=== PATIENT | female | born 1965 | race Caucasian/White ===

== ENCOUNTER 2017-03-19 23:52 | Inpatient (IN) | payer OTHER ==
[2017-03-20] MEDS: HYDROmorphONE 1 MG/ML SYG IV ×4 (00:55→23:09)
[2017-03-20] MEDS: ONDANSETRON 4 MG INJ IV ×5 (00:55→23:09)
[2017-03-20 01:24] LABS: ADD MAN DIFF? NO; BASOPHIL # 0.1 10^3/ul (0.0-0.1); BASOPHILS % 0.9 % (0.0-2.0); EOSINOPHILS # 0.9 10^3/ul (0.0-0.5); EOSINOPHILS % 6.7 % (0.0-7.0); HEMOGLOBIN 11.6 g/dl (12.0-16.0); LYMPHOCYTES # 2.1 10^3/ul (0.8-2.9); LYMPHOCYTES % 15.9 % (15.0-51.0); MEAN CORPUSCULAR HEMOGLOBIN 27.8 pg (29.0-33.0); MEAN CORPUSCULAR HGB CONC 33.1 g/dl (32.0-37.0); MEAN CORPUSCULAR VOLUME 83.7 fl (82.0-101.0); MEAN PLATELET VOLUME 9.4 fl (7.4-10.4); MONOCYTE # 1.1 10^3/ul (0.3-0.9); MONOCYTES % 8.1 % (0.0-11.0); NEUTROPHILS % 67.3 % (39.0-77.0); PLATELET COUNT 566 10^3/UL (140-415); RED BLOOD COUNT 4.18 10^6/ul (4.20-5.40); RED CELL DISTRIBUTION WIDTH 18.6 % (11.5-14.5)
[2017-03-20 01:24] LABS: WHITE BLOOD COUNT 13.3 10^3/ul (4.8-10.8)
[2017-03-20 01:48] LABS: ALANINE AMINOTRANSFERASE 25 IU/L (13-69); ALBUMIN 3.9 g/dl (3.3-4.9); ALKALINE PHOSPHATASE 83 IU/L (42-121); ANION GAP 16 (8-16); ASPARTATE AMINO TRANSFERASE 17 IU/L (15-46); BILIRUBIN,INDIRECT 0.6 mg/dl (0-1.1); BILIRUBIN,TOTAL 0.6 mg/dl (0.2-1.3); BLOOD UREA NITROGEN 20 mg/dl (7-20); CALCIUM 10.9 mg/dl (8.4-10.2); CARBON DIOXIDE 30 mmol/L (21-31); CHLORIDE 92 mmol/L (97-110); CREATININE 0.94 mg/dl (0.44-1.00); GLUCOSE 110 mg/dl (70-220); LIPASE 506 U/L (23-300); POTASSIUM 4.2 mmol/L (3.5-5.1); SODIUM 134 mmol/L (135-144); TOTAL PROTEIN 7.8 g/dl (6.1-8.1)
[2017-03-20] MEDS ORDERED: METOCLOPRAMIDE 10 MG INJ (03:17)
[2017-03-20 03:24] LABS: URINE BLOOD (Dip) POC Negative (NEGATIVE); URINE GLUCOSE (Dip) POC Negative (NEGATIVE); URINE KETONES (Dip) POC Negative (NEGATIVE); URINE LEUKOCYTE EST (Dip) POC Negative (NEGATIVE); URINE NITRITE (Dip) POC Negative (NEGATIVE); URINE TOTAL PROTEIN POC Trace (NEGATIVE)
[2017-03-20 03:24] LABS: URINE PH (Dip) POC 5.5 (5.0-8.5)
[2017-03-20] MEDS: METOCLOPRAMIDE 10 MG INJ IV (03:27)
[2017-03-20] MEDS: SOD CHLORIDE 0.9% 1,000 ML IV ×4 (03:27→19:50)
[2017-03-20] MEDS: BARIUM SULF 2% 450 ML BTL (BERRY SMOOTHIE) PO ×2 (04:52→05:00)
[2017-03-20] MEDS ORDERED: BARIUM SULFATE 454 GM TUBE (E-Z PASTE) PO (05:00)
[2017-03-20] MEDS ORDERED: ACETAMINOPHEN 325 MG TAB PO (06:30)
[2017-03-20] MEDS: SPIRONOLACTONE 25 MG TAB PO (09:00)
[2017-03-20] MEDS: LISINOPRIL 20 MG TAB PO (09:00)
[2017-03-20] MEDS: LORATADINE 10 MG TAB PO (09:00)
[2017-03-20] MEDS: FUROSEMIDE 40 MG TAB PO (09:00)
[2017-03-20 11:26] LABS: ALANINE AMINOTRANSFERASE 28 IU/L (13-69); ALBUMIN 3.6 g/dl (3.3-4.9); ALBUMIN/GLOBULIN RATIO 1.09; ALKALINE PHOSPHATASE 78 IU/L (42-121); AMYLASE 72 U/L (11-123); ANION GAP 16 (8-16); ASPARTATE AMINO TRANSFERASE 17 IU/L (15-46); BILIRUBIN,INDIRECT 0.5 mg/dl (0-1.1); BILIRUBIN,TOTAL 0.5 mg/dl (0.2-1.3); BLOOD UREA NITROGEN 17 mg/dl (7-20); CALCIUM 9.7 mg/dl (8.4-10.2); CARBON DIOXIDE 26 mmol/L (21-31); CHLORIDE 95 mmol/L (97-110); CREATININE 0.79 mg/dl (0.44-1.00); GLUCOSE 102 mg/dl (70-220); LIPASE 305 U/L (23-300); POTASSIUM 4.2 mmol/L (3.5-5.1); SODIUM 133 mmol/L (135-144); TOTAL PROTEIN 6.9 g/dl (6.1-8.1)
[2017-03-20] MEDS ORDERED: NACL 0.9% 3 ML SYG IV (13:00)
[2017-03-20] MEDS ORDERED: MAGNESIUM HYDROXIDE 30ML CUP PO (13:00)
[2017-03-20] MEDS ORDERED: BISACODYL 10 MG SUPP PR (13:00)
[2017-03-20] MEDS: DIGOXIN 0.125 MG TAB PO (13:00)
[2017-03-20] MEDS: FAMOTIDINE 20 MG TAB PO (20:57)
[2017-03-21] MEDS: SOD CHLORIDE 0.9% 1,000 ML IV ×2 (01:50→16:25)
[2017-03-21] MEDS: PANTOPRAZOLE 40 MG INJ IV (05:11)
[2017-03-21 05:20] LABS: ADD MAN DIFF? NO
[2017-03-21 05:56] LABS: PHOSPHORUS 5.3 mg/dl (2.5-4.9)
[2017-03-21 05:56] LABS: MAGNESIUM 1.9 mg/dl (1.7-2.5)
[2017-03-21 06:39] LABS: ALANINE AMINOTRANSFERASE 26 IU/L (13-69); ALBUMIN 3.2 g/dl (3.3-4.9); ALBUMIN/GLOBULIN RATIO 1.03; ALKALINE PHOSPHATASE 69 IU/L (42-121); AMYLASE 58 U/L (11-123); ANION GAP 16 (8-16); ASPARTATE AMINO TRANSFERASE 18 IU/L (15-46); BILIRUBIN,INDIRECT 0.4 mg/dl (0-1.1); BILIRUBIN,TOTAL 0.4 mg/dl (0.2-1.3); BLOOD UREA NITROGEN 13 mg/dl (7-20); CALCIUM 9.3 mg/dl (8.4-10.2); CARBON DIOXIDE 24 mmol/L (21-31); CHLORIDE 101 mmol/L (97-110); CREATININE 0.73 mg/dl (0.44-1.00); GLUCOSE 83 mg/dl (70-220); LIPASE 194 U/L (23-300); POTASSIUM 4.1 mmol/L (3.5-5.1); SODIUM 137 mmol/L (135-144); TOTAL PROTEIN 6.3 g/dl (6.1-8.1)
[2017-03-21] MEDS: ONDANSETRON 4 MG INJ IV ×2 (07:46→23:46)
[2017-03-21] MEDS: HYDROmorphONE 1 MG/ML SYG IV (07:46)
[2017-03-21 07:47] LABS: WHITE BLOOD COUNT 10.3 10^3/ul (4.8-10.8)
[2017-03-21 07:47] LABS: BASOPHIL # 0.1 10^3/ul (0.0-0.1); EOSINOPHILS # 0.6 10^3/ul (0.0-0.5); HEMATOCRIT 30.9 % (37.0-47.0); HEMOGLOBIN 9.8 g/dl (12.0-16.0); LYMPHOCYTES # 1.4 10^3/ul (0.8-2.9); LYMPHOCYTES % 13.6 % (15.0-51.0); MEAN CORPUSCULAR HEMOGLOBIN 27.3 pg (29.0-33.0); MEAN CORPUSCULAR HGB CONC 31.7 g/dl (32.0-37.0); MEAN CORPUSCULAR VOLUME 86.1 fl (82.0-101.0); MEAN PLATELET VOLUME 9.8 fl (7.4-10.4); MONOCYTE # 0.7 10^3/ul (0.3-0.9); MONOCYTES % 6.9 % (0.0-11.0); NEUTROPHIL # 7.4 10^3/ul (1.6-7.5); NEUTROPHILS % 71.6 % (39.0-77.0); PLATELET COUNT 434 10^3/UL (140-415); RED BLOOD COUNT 3.59 10^6/ul (4.20-5.40); RED CELL DISTRIBUTION WIDTH 18.6 % (11.5-14.5)
[2017-03-21] MEDS: SPIRONOLACTONE 25 MG TAB PO (09:21)
[2017-03-21] MEDS: FAMOTIDINE 20 MG TAB PO ×2 (09:21→21:01)
[2017-03-21] MEDS: LORATADINE 10 MG TAB PO (09:21)
[2017-03-21] MEDS: LISINOPRIL 20 MG TAB PO (09:21)
[2017-03-21] MEDS: DIGOXIN 0.125 MG TAB PO (12:43)
[2017-03-21] MEDS: FUROSEMIDE 40 MG TAB PO (12:43)
[2017-03-21] MEDS ORDERED: HYDROmorphONE 4 MG TAB PO ×2 (14:45→15:00)
[2017-03-21] MEDS: traMADol-APAP 37.5-325 1 TAB PO (18:27)
[2017-03-22] MEDS: ONDANSETRON 4 MG INJ IV ×2 (03:48→09:25)
[2017-03-22 05:18] LABS: ADD MAN DIFF? NO
[2017-03-22 05:29] LABS: BASOPHIL # 0.1 10^3/ul (0.0-0.1); BASOPHILS % 0.9 % (0.0-2.0); EOSINOPHILS # 0.6 10^3/ul (0.0-0.5); EOSINOPHILS % 5.8 % (0.0-7.0); HEMATOCRIT 31.8 % (37.0-47.0); HEMOGLOBIN 10.4 g/dl (12.0-16.0); LYMPHOCYTES # 1.3 10^3/ul (0.8-2.9); LYMPHOCYTES % 13.2 % (15.0-51.0); MEAN CORPUSCULAR HEMOGLOBIN 27.7 pg (29.0-33.0); MEAN CORPUSCULAR HGB CONC 32.7 g/dl (32.0-37.0); MEAN CORPUSCULAR VOLUME 84.6 fl (82.0-101.0); MEAN PLATELET VOLUME 9.3 fl (7.4-10.4); MONOCYTE # 0.8 10^3/ul (0.3-0.9); MONOCYTES % 8.4 % (0.0-11.0); NEUTROPHIL # 6.8 10^3/ul (1.6-7.5); NEUTROPHILS % 70.9 % (39.0-77.0); PLATELET COUNT 413 10^3/UL (140-415); RED BLOOD COUNT 3.76 10^6/ul (4.20-5.40)
[2017-03-22 05:29] LABS: WHITE BLOOD COUNT 9.6 10^3/ul (4.8-10.8)
[2017-03-22] MEDS: PANTOPRAZOLE 40 MG INJ IV (05:58)
[2017-03-22 06:13] LABS: MAGNESIUM 1.8 mg/dl (1.7-2.5)
[2017-03-22 06:13] LABS: PHOSPHORUS 5.3 mg/dl (2.5-4.9)
[2017-03-22 06:16] LABS: ALANINE AMINOTRANSFERASE 27 IU/L (13-69); ALBUMIN 3.3 g/dl (3.3-4.9); ALBUMIN/GLOBULIN RATIO 0.97; ALKALINE PHOSPHATASE 67 IU/L (42-121); ANION GAP 14 (8-16); ASPARTATE AMINO TRANSFERASE 13 IU/L (15-46); BILIRUBIN,INDIRECT 0.6 mg/dl (0-1.1); BILIRUBIN,TOTAL 0.6 mg/dl (0.2-1.3); BLOOD UREA NITROGEN 10 mg/dl (7-20); CALCIUM 9.8 mg/dl (8.4-10.2); CARBON DIOXIDE 29 mmol/L (21-31); CHLORIDE 96 mmol/L (97-110); CREATININE 0.83 mg/dl (0.44-1.00); GLUCOSE 97 mg/dl (70-220); POTASSIUM 3.7 mmol/L (3.5-5.1); SODIUM 135 mmol/L (135-144); TOTAL PROTEIN 6.7 g/dl (6.1-8.1)
[2017-03-22] MEDS: LISINOPRIL 20 MG TAB PO (09:25)
[2017-03-22] MEDS: FAMOTIDINE 20 MG TAB PO ×2 (09:25→21:16)
[2017-03-22] MEDS: SPIRONOLACTONE 25 MG TAB PO (09:25)
[2017-03-22] MEDS: LORATADINE 10 MG TAB PO (09:25)
[2017-03-22] MEDS: SOD CHLORIDE 0.9% 1,000 ML IV (11:50)
[2017-03-22] MEDS: DIGOXIN 0.125 MG TAB PO (13:07)
[2017-03-22] MEDS: FUROSEMIDE 40 MG TAB PO (13:07)
[2017-03-22] MEDS: MINERAL OIL 30ML CUP PO (21:00)
[2017-03-22] MEDS: DOCUSATE SODIUM 100 MG CAP PO (21:16)
[2017-03-23] MEDS: SOD CHLORIDE 0.9% 1,000 ML IV ×2 (01:10→14:30)
[2017-03-23] MEDS: PANTOPRAZOLE 40 MG INJ IV (06:00)
[2017-03-23 06:03] LABS: ADD MAN DIFF? NO
[2017-03-23 06:06] LABS: BASOPHIL # 0.1 10^3/ul (0.0-0.1); BASOPHILS % 1.1 % (0.0-2.0); EOSINOPHILS # 0.4 10^3/ul (0.0-0.5); EOSINOPHILS % 5.2 % (0.0-7.0); HEMOGLOBIN 10.2 g/dl (12.0-16.0); LYMPHOCYTES # 1.5 10^3/ul (0.8-2.9); LYMPHOCYTES % 18.5 % (15.0-51.0); MEAN CORPUSCULAR HEMOGLOBIN 27.8 pg (29.0-33.0); MEAN CORPUSCULAR HGB CONC 32.9 g/dl (32.0-37.0); MEAN CORPUSCULAR VOLUME 84.5 fl (82.0-101.0); MONOCYTE # 0.7 10^3/ul (0.3-0.9); NEUTROPHIL # 5.5 10^3/ul (1.6-7.5); NEUTROPHILS % 66.6 % (39.0-77.0); PLATELET COUNT 376 10^3/UL (140-415); RED BLOOD COUNT 3.67 10^6/ul (4.20-5.40); RED CELL DISTRIBUTION WIDTH 18.2 % (11.5-14.5)
[2017-03-23 06:06] LABS: WHITE BLOOD COUNT 8.2 10^3/ul (4.8-10.8)
[2017-03-23 07:05] LABS: ALANINE AMINOTRANSFERASE 22 IU/L (13-69); ALBUMIN 3.3 g/dl (3.3-4.9); ALBUMIN/GLOBULIN RATIO 1.06; ALKALINE PHOSPHATASE 70 IU/L (42-121); ANION GAP 15 (8-16); ASPARTATE AMINO TRANSFERASE 14 IU/L (15-46); BILIRUBIN,INDIRECT 0.5 mg/dl (0-1.1); BILIRUBIN,TOTAL 0.5 mg/dl (0.2-1.3); BLOOD UREA NITROGEN 10 mg/dl (7-20); CALCIUM 9.8 mg/dl (8.4-10.2); CARBON DIOXIDE 26 mmol/L (21-31); CHLORIDE 99 mmol/L (97-110); CREATININE 0.75 mg/dl (0.44-1.00); GLUCOSE 106 mg/dl (70-220); POTASSIUM 3.8 mmol/L (3.5-5.1); SODIUM 136 mmol/L (135-144); TOTAL PROTEIN 6.4 g/dl (6.1-8.1)
[2017-03-23] MEDS: MINERAL OIL 30ML CUP PO ×2 (09:00→13:00)
[2017-03-23] MEDS: LORATADINE 10 MG TAB PO (10:51)
[2017-03-23] MEDS: LISINOPRIL 20 MG TAB PO (10:53)
[2017-03-23] MEDS: FAMOTIDINE 20 MG TAB PO ×2 (10:53→20:49)
[2017-03-23] MEDS: FUROSEMIDE 40 MG TAB PO (10:53)
[2017-03-23] MEDS: SPIRONOLACTONE 25 MG TAB PO (10:53)
[2017-03-23] MEDS: DIGOXIN 0.125 MG TAB PO (13:17)
[2017-03-23] MEDS: ONDANSETRON 4 MG INJ IV (14:11)
[2017-03-23] MEDS: ONDANSETRON 4 MG TAB PO (14:41)
[2017-03-23] MEDS ORDERED: BISACODYL (EC) 5 MG TAB PO (16:30)
[2017-03-23] MEDS: MAGNESIUM HYDROXIDE 30ML CUP PO ×2 (16:50→20:50)
[2017-03-23] MEDS: DIPHENHYDRAMINE 25 MG CAP PO (20:54)
[2017-03-24] MEDS: PANTOPRAZOLE 40 MG INJ IV (05:47)
[2017-03-24] MEDS: HYDROmorphONE 2 MG TAB PO ×2 (08:23→18:52)
[2017-03-24] MEDS: ONDANSETRON 4 MG TAB PO ×3 (08:23→20:43)
[2017-03-24] MEDS: FUROSEMIDE 40 MG TAB PO (09:00)
[2017-03-24] MEDS: SPIRONOLACTONE 25 MG TAB PO (09:00)
[2017-03-24] MEDS: MAGNESIUM HYDROXIDE 30ML CUP PO ×2 (09:00→20:46)
[2017-03-24] MEDS: LORATADINE 10 MG TAB PO (09:00)
[2017-03-24] MEDS: LISINOPRIL 20 MG TAB PO (09:00)
[2017-03-24] MEDS: FAMOTIDINE 20 MG TAB PO ×2 (12:57→20:43)
[2017-03-24] MEDS: DIGOXIN 0.125 MG TAB PO (12:57)
[2017-03-24] MEDS: DIPHENHYDRAMINE 25 MG CAP PO ×2 (12:57→20:45)
[2017-03-24 17:28] LABS: INR 0.93; PARTIAL THROMBOPLASTIN TIME 29.4 Sec (25.0-35.0); PROTIME 12.6 Sec (11.9-14.9)
[2017-03-25] MEDS: ONDANSETRON 4 MG TAB PO ×2 (03:36→09:30)
[2017-03-25] MEDS: HYDROmorphONE 2 MG TAB PO ×3 (03:37→20:05)
[2017-03-25] MEDS: PANTOPRAZOLE 40 MG INJ IV (05:20)
[2017-03-25 05:31] LABS: ADD MAN DIFF? NO
[2017-03-25 05:44] LABS: WHITE BLOOD COUNT 9.5 10^3/ul (4.8-10.8)
[2017-03-25 05:44] LABS: BASOPHIL # 0.1 10^3/ul (0.0-0.1); BASOPHILS % 0.7 % (0.0-2.0); EOSINOPHILS # 0.6 10^3/ul (0.0-0.5); EOSINOPHILS % 6.2 % (0.0-7.0); HEMATOCRIT 30.7 % (37.0-47.0); HEMOGLOBIN 10.1 g/dl (12.0-16.0); LYMPHOCYTES # 1.7 10^3/ul (0.8-2.9); LYMPHOCYTES % 17.9 % (15.0-51.0); MEAN CORPUSCULAR HEMOGLOBIN 28.5 pg (29.0-33.0); MEAN CORPUSCULAR HGB CONC 32.9 g/dl (32.0-37.0); MEAN CORPUSCULAR VOLUME 86.5 fl (82.0-101.0); MEAN PLATELET VOLUME 10.1 fl (7.4-10.4); MONOCYTE # 0.8 10^3/ul (0.3-0.9); NEUTROPHIL # 6.3 10^3/ul (1.6-7.5); NEUTROPHILS % 66.7 % (39.0-77.0); PLATELET COUNT 327 10^3/UL (140-415); RED BLOOD COUNT 3.55 10^6/ul (4.20-5.40); RED CELL DISTRIBUTION WIDTH 17.9 % (11.5-14.5)
[2017-03-25 06:09] LABS: ANION GAP 14 (8-16); BLOOD UREA NITROGEN 14 mg/dl (7-20); CALCIUM 9.8 mg/dl (8.4-10.2); CARBON DIOXIDE 30 mmol/L (21-31); CHLORIDE 97 mmol/L (97-110); CREATININE 0.77 mg/dl (0.44-1.00); GLUCOSE 99 mg/dl (70-220); POTASSIUM 4.1 mmol/L (3.5-5.1); SODIUM 137 mmol/L (135-144)
[2017-03-25 06:10] LABS: MAGNESIUM 1.9 mg/dl (1.7-2.5)
[2017-03-25 06:10] LABS: PHOSPHORUS 5.5 mg/dl (2.5-4.9)
[2017-03-25] MEDS: FUROSEMIDE 40 MG TAB PO (09:00)
[2017-03-25] MEDS: MAGNESIUM HYDROXIDE 30ML CUP PO ×2 (09:00→21:29)
[2017-03-25] MEDS: SPIRONOLACTONE 25 MG TAB PO (09:00)
[2017-03-25] MEDS: LORATADINE 10 MG TAB PO (09:31)
[2017-03-25] MEDS: LISINOPRIL 20 MG TAB PO (09:31)
[2017-03-25] MEDS: FAMOTIDINE 20 MG TAB PO ×2 (09:31→21:29)
[2017-03-25] MEDS: DIGOXIN 0.125 MG TAB PO (12:39)
[2017-03-25] MEDS: LIDOCAINE 1% (MDV) 20 ML INJ (13:44)
[2017-03-25] MEDS: ONDANSETRON 4 MG INJ (14:24)
[2017-03-25] MEDS: MIDAZOLAM 1 MG/ML 2 ML INJ (14:24)
[2017-03-25] MEDS: FENTAnyl 50 MCG/ML VIAL (14:24)
[2017-03-25] MEDS ORDERED: hydrALAzine 20 MG INJ IV (15:30)
[2017-03-25] MEDS ORDERED: HYDROmorphONE (0.2 MG/ML) 10ML SYG IV ×2 (15:30)
[2017-03-25] MEDS ORDERED: EPHEDrine SULFATE 50 MG/5 ML SYG IV (15:30)
[2017-03-25] MEDS ORDERED: ONDANSETRON 4 MG INJ IV (15:30)
[2017-03-25] MEDS ORDERED: PROCHLORPERAZINE 10 MG INJ IV (15:30)
[2017-03-25] MEDS: HYDROmorphONE (0.2 MG/ML) 10ML SYG IV ×2 (15:50→16:04)
[2017-03-25] MEDS: METOCLOPRAMIDE 10 MG INJ IV (15:51)
[2017-03-25] MEDS ORDERED: VANCOMYCIN IV PER PHARMACY XX (16:30)
[2017-03-25] MEDS ORDERED: CEFTRIAXONE 1 GM/50 ML (PMX) 50 ML IVPB (16:30)
[2017-03-25] MEDS: DIPHENHYDRAMINE 25 MG CAP PO (17:52)
[2017-03-25] MEDS: ERTAPENEM SODIUM 1 GM in SOD CHLORIDE 0.9% 100 ML IVPB (17:53)
[2017-03-25] MEDS: VANCOMYCIN 1.5 GM in DEXTROSE 5% 500 ML IVPB (18:43)
[2017-03-25] MEDS: morphine 4 MG/ML VIAL IV (18:43)
[2017-03-26] MEDS: ONDANSETRON 4 MG TAB PO ×3 (01:31→20:20)
[2017-03-26] MEDS: HYDROmorphONE 2 MG TAB PO ×2 (04:56→20:43)
[2017-03-26 05:22] LABS: ADD MAN DIFF? NO
[2017-03-26 05:30] LABS: BASOPHIL # 0.1 10^3/ul (0.0-0.1); BASOPHILS % 0.4 % (0.0-2.0); EOSINOPHILS # 0.3 10^3/ul (0.0-0.5); EOSINOPHILS % 2.4 % (0.0-7.0); HEMATOCRIT 31.1 % (37.0-47.0); HEMOGLOBIN 10.1 g/dl (12.0-16.0); LYMPHOCYTES # 0.7 10^3/ul (0.8-2.9); LYMPHOCYTES % 5.2 % (15.0-51.0); MEAN CORPUSCULAR HEMOGLOBIN 27.9 pg (29.0-33.0); MEAN CORPUSCULAR HGB CONC 32.5 g/dl (32.0-37.0); MEAN CORPUSCULAR VOLUME 85.9 fl (82.0-101.0); MEAN PLATELET VOLUME 9.7 fl (7.4-10.4); MONOCYTE # 0.7 10^3/ul (0.3-0.9); MONOCYTES % 4.9 % (0.0-11.0); NEUTROPHIL # 12.1 10^3/ul (1.6-7.5); NEUTROPHILS % 86.5 % (39.0-77.0); PLATELET COUNT 338 10^3/UL (140-415); RED BLOOD COUNT 3.62 10^6/ul (4.20-5.40); RED CELL DISTRIBUTION WIDTH 17.5 % (11.5-14.5)
[2017-03-26] MEDS: PANTOPRAZOLE 40 MG INJ IV (05:34)
[2017-03-26] MEDS: VANCOMYCIN 1 GM in NS 250 ML IVPB ×2 (05:34→18:02)
[2017-03-26] MEDS ORDERED: VANCOMYCIN 1.25 GM in DEXTROSE 5% 250 ML IVPB (06:00)
[2017-03-26 06:18] LABS: PHOSPHORUS 5.5 mg/dl (2.5-4.9)
[2017-03-26 06:29] LABS: ALANINE AMINOTRANSFERASE 28 IU/L (13-69); ALBUMIN 3.3 g/dl (3.3-4.9); ALBUMIN/GLOBULIN RATIO 1.03; ALKALINE PHOSPHATASE 72 IU/L (42-121); ANION GAP 13 (8-16); ASPARTATE AMINO TRANSFERASE 21 IU/L (15-46); BILIRUBIN,INDIRECT 0.5 mg/dl (0-1.1); BILIRUBIN,TOTAL 0.5 mg/dl (0.2-1.3); BLOOD UREA NITROGEN 14 mg/dl (7-20); CALCIUM 9.6 mg/dl (8.4-10.2); CARBON DIOXIDE 30 mmol/L (21-31); CHLORIDE 97 mmol/L (97-110); CREATININE 0.82 mg/dl (0.44-1.00); GLUCOSE 126 mg/dl (70-220); POTASSIUM 4.5 mmol/L (3.5-5.1); SODIUM 135 mmol/L (135-144); TOTAL PROTEIN 6.5 g/dl (6.1-8.1)
[2017-03-26] MEDS: LORATADINE 10 MG TAB PO (08:27)
[2017-03-26] MEDS: FAMOTIDINE 20 MG TAB PO ×2 (08:27→20:20)
[2017-03-26] MEDS: LISINOPRIL 20 MG TAB PO (08:27)
[2017-03-26] MEDS: MAGNESIUM HYDROXIDE 30ML CUP PO ×2 (08:28→20:20)
[2017-03-26] MEDS: SPIRONOLACTONE 25 MG TAB PO (08:28)
[2017-03-26] MEDS: FUROSEMIDE 40 MG TAB PO (08:28)
[2017-03-26] MEDS: DIGOXIN 0.125 MG TAB PO (13:04)
[2017-03-26] MEDS: METOCLOPRAMIDE 10 MG INJ IV (13:15)
[2017-03-26] MEDS: ERTAPENEM SODIUM 1 GM in SOD CHLORIDE 0.9% 100 ML IVPB (16:02)
[2017-03-27] MEDS: DIPHENHYDRAMINE 25 MG CAP PO (02:10)
[2017-03-27] MEDS: ONDANSETRON 4 MG TAB PO ×3 (02:10→20:09)
[2017-03-27] MEDS: HYDROmorphONE 2 MG TAB PO ×3 (02:35→20:45)
[2017-03-27 05:13] LABS: ADD MAN DIFF? NO
[2017-03-27 05:15] LABS: WHITE BLOOD COUNT 9.2 10^3/ul (4.8-10.8)
[2017-03-27 05:15] LABS: BASOPHILS % 0.3 % (0.0-2.0); EOSINOPHILS # 0.9 10^3/ul (0.0-0.5); EOSINOPHILS % 9.3 % (0.0-7.0); HEMOGLOBIN 9.3 g/dl (12.0-16.0); LYMPHOCYTES # 0.9 10^3/ul (0.8-2.9); LYMPHOCYTES % 9.6 % (15.0-51.0); MEAN CORPUSCULAR HEMOGLOBIN 28.5 pg (29.0-33.0); MEAN CORPUSCULAR HGB CONC 33.2 g/dl (32.0-37.0); MEAN CORPUSCULAR VOLUME 85.9 fl (82.0-101.0); MONOCYTE # 0.7 10^3/ul (0.3-0.9); MONOCYTES % 7.6 % (0.0-11.0); NEUTROPHIL # 6.7 10^3/ul (1.6-7.5); NEUTROPHILS % 72.7 % (39.0-77.0); PLATELET COUNT 263 10^3/UL (140-415); RED BLOOD COUNT 3.26 10^6/ul (4.20-5.40); RED CELL DISTRIBUTION WIDTH 17.5 % (11.5-14.5)
[2017-03-27 05:34] LABS: ANION GAP 11 (8-16); BLOOD UREA NITROGEN 13 mg/dl (7-20); CALCIUM 9.2 mg/dl (8.4-10.2); CARBON DIOXIDE 32 mmol/L (21-31); CHLORIDE 95 mmol/L (97-110); CREATININE 0.79 mg/dl (0.44-1.00); GLUCOSE 103 mg/dl (70-220); SODIUM 134 mmol/L (135-144)
[2017-03-27 05:36] LABS: VANCOMYCIN,TROUGH 19.5 ug/ml (10.0-20.0)
[2017-03-27] MEDS: PANTOPRAZOLE 40 MG INJ IV (06:41)
[2017-03-27] MEDS: MAGNESIUM HYDROXIDE 30ML CUP PO ×2 (09:00→20:45)
[2017-03-27] MEDS: LISINOPRIL 20 MG TAB PO (09:00)
[2017-03-27] MEDS: FAMOTIDINE 20 MG TAB PO ×2 (10:17→20:45)
[2017-03-27] MEDS: LORATADINE 10 MG TAB PO (10:21)
[2017-03-27] MEDS: VANCOMYCIN 750 MG in DEXTROSE 5% 150 ML IVPB (11:58)
[2017-03-27] MEDS: DIGOXIN 0.125 MG TAB PO (14:33)
[2017-03-27] MEDS: ERTAPENEM SODIUM 1 GM in SOD CHLORIDE 0.9% 100 ML IVPB (16:34)
[2017-03-27] MEDS: LIDOCAINE 1% (MPF) 5 ML VIAL SC (17:05)
[2017-03-27] MEDS: SOD CHLORIDE 0.9% 100 ML (17:34)
[2017-03-27] MEDS: VANCOMYCIN 500MG/NS (PMX) 100 ML IVPB (22:09)
[2017-03-28] MEDS: ONDANSETRON 4 MG INJ IV ×2 (02:22→15:25)
[2017-03-28] MEDS: HYDROmorphONE 2 MG TAB PO ×2 (03:00→15:26)
[2017-03-28 05:43] LABS: ADD MAN DIFF? NO
[2017-03-28 05:52] LABS: WHITE BLOOD COUNT 9.9 10^3/ul (4.8-10.8)
[2017-03-28 05:52] LABS: BASOPHILS % 0.3 % (0.0-2.0); EOSINOPHILS # 0.8 10^3/ul (0.0-0.5); EOSINOPHILS % 8.1 % (0.0-7.0); HEMATOCRIT 28.2 % (37.0-47.0); HEMOGLOBIN 9.2 g/dl (12.0-16.0); LYMPHOCYTES # 1.1 10^3/ul (0.8-2.9); LYMPHOCYTES % 11.3 % (15.0-51.0); MEAN CORPUSCULAR HEMOGLOBIN 28.7 pg (29.0-33.0); MEAN CORPUSCULAR HGB CONC 32.6 g/dl (32.0-37.0); MEAN CORPUSCULAR VOLUME 87.9 fl (82.0-101.0); MEAN PLATELET VOLUME 10.4 fl (7.4-10.4); MONOCYTE # 0.9 10^3/ul (0.3-0.9); MONOCYTES % 8.6 % (0.0-11.0); NEUTROPHIL # 7.1 10^3/ul (1.6-7.5); NEUTROPHILS % 71.4 % (39.0-77.0); PLATELET COUNT 281 10^3/UL (140-415); RED BLOOD COUNT 3.21 10^6/ul (4.20-5.40); RED CELL DISTRIBUTION WIDTH 16.7 % (11.5-14.5)
[2017-03-28 06:20] LABS: PHOSPHORUS 4.6 mg/dl (2.5-4.9)
[2017-03-28] MEDS: PANTOPRAZOLE 40 MG INJ IV (06:35)
[2017-03-28 06:58] LABS: ALANINE AMINOTRANSFERASE 31 IU/L (13-69); ALBUMIN 2.9 g/dl (3.3-4.9); ALKALINE PHOSPHATASE 70 IU/L (42-121); ANION GAP 11 (8-16); ASPARTATE AMINO TRANSFERASE 13 IU/L (15-46); BILIRUBIN,INDIRECT 0.5 mg/dl (0-1.1); BILIRUBIN,TOTAL 0.5 mg/dl (0.2-1.3); BLOOD UREA NITROGEN 11 mg/dl (7-20); CALCIUM 9.3 mg/dl (8.4-10.2); CARBON DIOXIDE 32 mmol/L (21-31); CHLORIDE 95 mmol/L (97-110); CREATININE 0.76 mg/dl (0.44-1.00); GLUCOSE 98 mg/dl (70-220); SODIUM 134 mmol/L (135-144); TOTAL PROTEIN 6.1 g/dl (6.1-8.1)
[2017-03-28] MEDS: LORATADINE 10 MG TAB PO (08:55)
[2017-03-28] MEDS: FAMOTIDINE 20 MG TAB PO ×2 (08:55→21:55)
[2017-03-28] MEDS: FUROSEMIDE 40 MG TAB PO (08:55)
[2017-03-28] MEDS: LISINOPRIL 20 MG TAB PO (08:56)
[2017-03-28] MEDS: VANCOMYCIN 500MG/NS (PMX) 100 ML IVPB ×2 (08:56→21:56)
[2017-03-28] MEDS: MAGNESIUM HYDROXIDE 30ML CUP PO ×2 (08:56→21:55)
[2017-03-28] MEDS: DIPHENHYDRAMINE 25 MG CAP PO (09:12)
[2017-03-28] MEDS: DIGOXIN 0.125 MG TAB PO (12:10)
[2017-03-28] MEDS: ERTAPENEM SODIUM 1 GM in SOD CHLORIDE 0.9% 100 ML IVPB (16:21)
[2017-03-29] MEDS: PANTOPRAZOLE 40 MG INJ IV (04:41)
[2017-03-29 05:31] LABS: ADD MAN DIFF? NO
[2017-03-29 05:39] LABS: WHITE BLOOD COUNT 9.1 10^3/ul (4.8-10.8)
[2017-03-29 05:39] LABS: BASOPHILS % 0.3 % (0.0-2.0); EOSINOPHILS # 0.6 10^3/ul (0.0-0.5); HEMOGLOBIN 9.3 g/dl (12.0-16.0); LYMPHOCYTES # 1.2 10^3/ul (0.8-2.9); LYMPHOCYTES % 12.6 % (15.0-51.0); MEAN CORPUSCULAR HEMOGLOBIN 28.4 pg (29.0-33.0); MEAN CORPUSCULAR HGB CONC 33.2 g/dl (32.0-37.0); MEAN CORPUSCULAR VOLUME 85.6 fl (82.0-101.0); MEAN PLATELET VOLUME 10.5 fl (7.4-10.4); MONOCYTE # 0.7 10^3/ul (0.3-0.9); NEUTROPHIL # 6.6 10^3/ul (1.6-7.5); NEUTROPHILS % 72.7 % (39.0-77.0); PLATELET COUNT 275 10^3/UL (140-415); RED BLOOD COUNT 3.27 10^6/ul (4.20-5.40); RED CELL DISTRIBUTION WIDTH 16.6 % (11.5-14.5)
[2017-03-29 06:04] LABS: ALANINE AMINOTRANSFERASE 25 IU/L (13-69); ALBUMIN 2.9 g/dl (3.3-4.9); ALBUMIN/GLOBULIN RATIO 0.85; ALKALINE PHOSPHATASE 74 IU/L (42-121); ANION GAP 13 (8-16); ASPARTATE AMINO TRANSFERASE 11 IU/L (15-46); BILIRUBIN,INDIRECT 0.6 mg/dl (0-1.1); BILIRUBIN,TOTAL 0.6 mg/dl (0.2-1.3); BLOOD UREA NITROGEN 9 mg/dl (7-20); CALCIUM 9.3 mg/dl (8.4-10.2); CARBON DIOXIDE 32 mmol/L (21-31); CHLORIDE 95 mmol/L (97-110); CREATININE 0.82 mg/dl (0.44-1.00); GLUCOSE 93 mg/dl (70-220); POTASSIUM 3.9 mmol/L (3.5-5.1); SODIUM 136 mmol/L (135-144); TOTAL PROTEIN 6.3 g/dl (6.1-8.1)
[2017-03-29 06:10] LABS: PHOSPHORUS 4.9 mg/dl (2.5-4.9)
[2017-03-29] MEDS: IOHEXOL 14.3 MG(I)/ML (ADULT) BTL PO (08:00)
[2017-03-29] MEDS: SOD CHLORIDE 0.9% 100 ML (09:57)
[2017-03-29] MEDS: IOHEXOL 300MG/ML 150 ML BTL (09:57)
[2017-03-29 10:41] LABS: VANCOMYCIN,TROUGH 11.1 ug/ml (10.0-20.0)
[2017-03-29] MEDS: MAGNESIUM HYDROXIDE 30ML CUP PO ×2 (11:49→21:00)
[2017-03-29] MEDS: VANCOMYCIN 500MG/NS (PMX) 100 ML IVPB ×2 (11:49→21:05)
[2017-03-29] MEDS: FAMOTIDINE 20 MG TAB PO ×2 (11:50→21:04)
[2017-03-29] MEDS: LORATADINE 10 MG TAB PO (11:50)
[2017-03-29] MEDS: LISINOPRIL 20 MG TAB PO (11:52)
[2017-03-29] MEDS: FUROSEMIDE 40 MG TAB PO (11:52)
[2017-03-29] MEDS: DIGOXIN 0.125 MG TAB PO (13:16)
[2017-03-29] MEDS: ONDANSETRON 4 MG TAB PO ×2 (13:26→22:37)
[2017-03-29] MEDS: HYDROmorphONE 2 MG TAB PO ×2 (13:27→22:37)
[2017-03-29] MEDS: ERTAPENEM SODIUM 1 GM in SOD CHLORIDE 0.9% 100 ML IVPB (16:31)
[2017-03-29] MEDS: DIPHENHYDRAMINE 25 MG CAP PO (23:43)
[2017-03-30 05:24] LABS: ADD MAN DIFF? NO
[2017-03-30 05:30] LABS: WHITE BLOOD COUNT 7.9 10^3/ul (4.8-10.8)
[2017-03-30 05:30] LABS: BASOPHILS % 0.4 % (0.0-2.0); EOSINOPHILS # 0.7 10^3/ul (0.0-0.5); EOSINOPHILS % 8.3 % (0.0-7.0); HEMATOCRIT 25.5 % (37.0-47.0); HEMOGLOBIN 8.4 g/dl (12.0-16.0); LYMPHOCYTES # 1.2 10^3/ul (0.8-2.9); LYMPHOCYTES % 15.5 % (15.0-51.0); MEAN CORPUSCULAR HEMOGLOBIN 28.2 pg (29.0-33.0); MEAN CORPUSCULAR HGB CONC 32.9 g/dl (32.0-37.0); MEAN CORPUSCULAR VOLUME 85.6 fl (82.0-101.0); MEAN PLATELET VOLUME 10.4 fl (7.4-10.4); MONOCYTE # 0.8 10^3/ul (0.3-0.9); MONOCYTES % 9.6 % (0.0-11.0); NEUTROPHIL # 5.2 10^3/ul (1.6-7.5); NEUTROPHILS % 65.8 % (39.0-77.0); PLATELET COUNT 256 10^3/UL (140-415); RED BLOOD COUNT 2.98 10^6/ul (4.20-5.40); RED CELL DISTRIBUTION WIDTH 16.5 % (11.5-14.5)
[2017-03-30 05:56] LABS: PHOSPHORUS 5.1 mg/dl (2.5-4.9)
[2017-03-30 05:56] LABS: MAGNESIUM 1.9 mg/dl (1.7-2.5)
[2017-03-30 06:03] LABS: ANION GAP 10 (8-16); BLOOD UREA NITROGEN 8 mg/dl (7-20); CALCIUM 9.2 mg/dl (8.4-10.2); CARBON DIOXIDE 33 mmol/L (21-31); CHLORIDE 95 mmol/L (97-110); CREATININE 0.74 mg/dl (0.44-1.00); GLUCOSE 83 mg/dl (70-220); POTASSIUM 3.3 mmol/L (3.5-5.1); SODIUM 135 mmol/L (135-144)
[2017-03-30] MEDS: PANTOPRAZOLE 40 MG INJ IV (06:04)
[2017-03-30 06:21] LABS: INR 1.08; PROTIME 14.1 Sec (11.9-14.9); PT RATIO 1.1
[2017-03-30 06:22] LABS: PARTIAL THROMBOPLASTIN TIME 33.5 Sec (25.0-35.0)
[2017-03-30] MEDS: FAMOTIDINE 20 MG TAB PO ×2 (09:00→21:16)
[2017-03-30] MEDS: MAGNESIUM HYDROXIDE 30ML CUP PO ×2 (09:00→21:16)
[2017-03-30] MEDS: LISINOPRIL 20 MG TAB PO (09:00)
[2017-03-30] MEDS: LORATADINE 10 MG TAB PO (09:00)
[2017-03-30] MEDS: VANCOMYCIN 500MG/NS (PMX) 100 ML IVPB ×2 (10:00→14:40)
[2017-03-30] MEDS ORDERED: MEPERIDINE 25 MG INJ IV (11:00)
[2017-03-30] MEDS ORDERED: PROCHLORPERAZINE 10 MG INJ IV (11:00)
[2017-03-30] MEDS ORDERED: HYDROmorphONE (0.2 MG/ML) 10ML SYG IV ×3 (11:00)
[2017-03-30] MEDS ORDERED: FENTAnyl 50 MCG/ML VIAL IV ×3 (11:00)
[2017-03-30] MEDS ORDERED: DIPHENHYDRAMINE 50 MG INJ IV (11:00)
[2017-03-30] MEDS ORDERED: ONDANSETRON 4 MG INJ IV (11:00)
[2017-03-30] MEDS: PROPOFOL 40 ML (11:29)
[2017-03-30] MEDS: MIDAZOLAM 1 MG/ML 2 ML INJ (11:29)
[2017-03-30] MEDS: FENTAnyl 50 MCG/ML VIAL (11:29)
[2017-03-30] MEDS: LIDOCAINE 1% (MDV) 20 ML INJ (11:49)
[2017-03-30] MEDS: PROPOFOL 20 ML (12:25)
[2017-03-30] MEDS: DIGOXIN 0.125 MG TAB PO (13:00)
[2017-03-30] MEDS: ONDANSETRON 4 MG INJ IV ×2 (15:05→21:16)
[2017-03-30] MEDS: POTASSIUM CHLORIDE 20 MEQ POWDER FOR ORAL SOLN PO (16:26)
[2017-03-30] MEDS: ERTAPENEM SODIUM 1 GM in SOD CHLORIDE 0.9% 100 ML IVPB (17:00)
[2017-03-30] MEDS: HYDROmorphONE 2 MG TAB PO ×2 (21:17→23:27)
[2017-03-30] MEDS: METOCLOPRAMIDE 10 MG INJ IV (23:26)
[2017-03-31] MEDS: VANCOMYCIN 500MG/NS (PMX) 100 ML IVPB ×2 (01:33→14:30)
[2017-03-31] MEDS: PANTOPRAZOLE 40 MG INJ IV (05:54)
[2017-03-31 05:55] LABS: ADD MAN DIFF? NO
[2017-03-31 06:22] LABS: BASOPHILS % 0.6 % (0.0-2.0); EOSINOPHILS # 0.6 10^3/ul (0.0-0.5); EOSINOPHILS % 8.7 % (0.0-7.0); HEMATOCRIT 27.3 % (37.0-47.0); HEMOGLOBIN 8.8 g/dl (12.0-16.0); LYMPHOCYTES # 1.1 10^3/ul (0.8-2.9); LYMPHOCYTES % 16.5 % (15.0-51.0); MEAN CORPUSCULAR HEMOGLOBIN 28.3 pg (29.0-33.0); MEAN CORPUSCULAR HGB CONC 32.2 g/dl (32.0-37.0); MEAN CORPUSCULAR VOLUME 87.8 fl (82.0-101.0); MEAN PLATELET VOLUME 9.9 fl (7.4-10.4); MONOCYTE # 0.7 10^3/ul (0.3-0.9); MONOCYTES % 9.9 % (0.0-11.0); NEUTROPHIL # 4.2 10^3/ul (1.6-7.5); NEUTROPHILS % 63.8 % (39.0-77.0); PLATELET COUNT 270 10^3/UL (140-415); RED BLOOD COUNT 3.11 10^6/ul (4.20-5.40); RED CELL DISTRIBUTION WIDTH 16.1 % (11.5-14.5)
[2017-03-31 06:22] LABS: WHITE BLOOD COUNT 6.7 10^3/ul (4.8-10.8)
[2017-03-31 06:57] LABS: ANION GAP 13 (8-16); BLOOD UREA NITROGEN 8 mg/dl (7-20); CALCIUM 9.2 mg/dl (8.4-10.2); CARBON DIOXIDE 31 mmol/L (21-31); CHLORIDE 97 mmol/L (97-110); CREATININE 0.72 mg/dl (0.44-1.00); GLUCOSE 81 mg/dl (70-220); POTASSIUM 3.5 mmol/L (3.5-5.1); SODIUM 137 mmol/L (135-144)
[2017-03-31 07:00] LABS: MAGNESIUM 1.8 mg/dl (1.7-2.5)
[2017-03-31] MEDS: MAGNESIUM HYDROXIDE 30ML CUP PO ×2 (08:59→21:22)
[2017-03-31] MEDS: LORATADINE 10 MG TAB PO (09:00)
[2017-03-31] MEDS: LISINOPRIL 20 MG TAB PO (09:00)
[2017-03-31] MEDS: FAMOTIDINE 20 MG TAB PO ×2 (09:00→21:23)
[2017-03-31] MEDS: DIGOXIN 0.125 MG TAB PO (13:46)
[2017-03-31] MEDS: ERTAPENEM SODIUM 1 GM in SOD CHLORIDE 0.9% 100 ML IVPB (16:36)
[2017-03-31] MEDS: HYDROmorphONE 2 MG TAB PO ×2 (18:06→23:39)
[2017-03-31] MEDS: ONDANSETRON 4 MG INJ IV ×2 (18:09→23:39)
[2017-03-31] MEDS: METOCLOPRAMIDE 10 MG INJ IV (21:24)
[2017-04-01] MEDS: VANCOMYCIN 500MG/NS (PMX) 100 ML IVPB ×2 (02:15→14:44)
[2017-04-01] MEDS: PANTOPRAZOLE 40 MG INJ IV (05:45)
[2017-04-01] MEDS: MAGNESIUM HYDROXIDE 30ML CUP PO ×2 (09:34→19:38)
[2017-04-01] MEDS: FAMOTIDINE 20 MG TAB PO ×2 (09:34→19:36)
[2017-04-01] MEDS: LORATADINE 10 MG TAB PO (09:34)
[2017-04-01] MEDS: LISINOPRIL 20 MG TAB PO (09:35)
[2017-04-01] MEDS: FOLIC ACID 1 MG TAB PO (09:41)
[2017-04-01] MEDS: POLYSACCHARIDE IRON COMPLEX CAP PO (09:41)
[2017-04-01] MEDS: HYDROmorphONE 2 MG TAB PO ×2 (09:48→19:37)
[2017-04-01] MEDS: ONDANSETRON 4 MG INJ IV ×2 (09:48→19:42)
[2017-04-01] MEDS: SOD FERRIC GLUC COMPLX 125 MG in SOD CHLORIDE 0.9% 100 ML IVPB (12:52)
[2017-04-01] MEDS: LACTOBACILLUS RHAMNOSUS CAP PO ×2 (12:54→19:39)
[2017-04-01] MEDS: METOCLOPRAMIDE 10 MG INJ IV ×3 (12:54→23:44)
[2017-04-01] MEDS: DIGOXIN 0.125 MG TAB PO (12:57)
[2017-04-01] MEDS: ERTAPENEM SODIUM 1 GM in SOD CHLORIDE 0.9% 100 ML IVPB (17:14)
[2017-04-01] MEDS: ONDANSETRON 4 MG TAB PO (19:36)
[2017-04-01] MEDS: DIPHENHYDRAMINE 25 MG CAP PO (23:44)
[2017-04-02] MEDS: VANCOMYCIN 500MG/NS (PMX) 100 ML IVPB ×2 (01:57→14:35)
[2017-04-02] MEDS: METOCLOPRAMIDE 10 MG INJ IV ×2 (05:45→11:34)
[2017-04-02] MEDS: PANTOPRAZOLE 40 MG INJ IV (05:45)
[2017-04-02 08:46] LABS: ADD MAN DIFF? NO
[2017-04-02 08:51] LABS: WHITE BLOOD COUNT 7.1 10^3/ul (4.8-10.8)
[2017-04-02 08:51] LABS: BASOPHIL # 0.1 10^3/ul (0.0-0.1); BASOPHILS % 0.7 % (0.0-2.0); EOSINOPHILS # 0.7 10^3/ul (0.0-0.5); EOSINOPHILS % 9.2 % (0.0-7.0); HEMATOCRIT 27.1 % (37.0-47.0); HEMOGLOBIN 8.9 g/dl (12.0-16.0); LYMPHOCYTES # 1.3 10^3/ul (0.8-2.9); LYMPHOCYTES % 18.6 % (15.0-51.0); MEAN CORPUSCULAR HEMOGLOBIN 28.8 pg (29.0-33.0); MEAN CORPUSCULAR HGB CONC 32.8 g/dl (32.0-37.0); MEAN CORPUSCULAR VOLUME 87.7 fl (82.0-101.0); MEAN PLATELET VOLUME 9.4 fl (7.4-10.4); MONOCYTE # 0.5 10^3/ul (0.3-0.9); MONOCYTES % 6.9 % (0.0-11.0); NEUTROPHIL # 4.6 10^3/ul (1.6-7.5); PLATELET COUNT 272 10^3/UL (140-415); RED BLOOD COUNT 3.09 10^6/ul (4.20-5.40); RED CELL DISTRIBUTION WIDTH 16.1 % (11.5-14.5)
[2017-04-02 09:38] LABS: ALANINE AMINOTRANSFERASE 30 IU/L (13-69); ALBUMIN 2.8 g/dl (3.3-4.9); ALBUMIN/GLOBULIN RATIO 0.93; ALKALINE PHOSPHATASE 65 IU/L (42-121); ANION GAP 12 (8-16); ASPARTATE AMINO TRANSFERASE 11 IU/L (15-46); BILIRUBIN,INDIRECT 0.4 mg/dl (0-1.1); BILIRUBIN,TOTAL 0.4 mg/dl (0.2-1.3); BLOOD UREA NITROGEN 7 mg/dl (7-20); CALCIUM 9.2 mg/dl (8.4-10.2); CARBON DIOXIDE 29 mmol/L (21-31); CHLORIDE 101 mmol/L (97-110); CREATININE 0.77 mg/dl (0.44-1.00); GLUCOSE 89 mg/dl (70-220); POTASSIUM 3.7 mmol/L (3.5-5.1); SODIUM 138 mmol/L (135-144); TOTAL PROTEIN 5.8 g/dl (6.1-8.1)
[2017-04-02] MEDS: MAGNESIUM HYDROXIDE 30ML CUP PO ×2 (11:23→22:25)
[2017-04-02] MEDS: LORATADINE 10 MG TAB PO (11:23)
[2017-04-02] MEDS: FOLIC ACID 1 MG TAB PO (11:23)
[2017-04-02] MEDS: LACTOBACILLUS RHAMNOSUS CAP PO ×2 (11:23→22:25)
[2017-04-02] MEDS: FAMOTIDINE 20 MG TAB PO ×2 (11:23→22:25)
[2017-04-02] MEDS: LISINOPRIL 20 MG TAB PO (11:23)
[2017-04-02] MEDS: SOD FERRIC GLUC COMPLX 125 MG in SOD CHLORIDE 0.9% 100 ML IVPB (13:04)
[2017-04-02] MEDS: DIGOXIN 0.125 MG TAB PO (13:08)
[2017-04-02] MEDS: ERTAPENEM SODIUM 1 GM in SOD CHLORIDE 0.9% 100 ML IVPB (16:27)
[2017-04-02] MEDS ORDERED: LORAZEPAM 0.5 MG TAB PO ×2 (16:30)
[2017-04-02] MEDS: MEGESTROL 40 MG TAB PO ×2 (17:00→21:00)
[2017-04-02] MEDS: HYDROmorphONE 2 MG TAB PO ×2 (18:21→23:17)
[2017-04-02] MEDS: ONDANSETRON 4 MG INJ IV (23:16)
[2017-04-02] MEDS: DIPHENHYDRAMINE 25 MG CAP PO (23:16)
[2017-04-03] MEDS: VANCOMYCIN 500MG/NS (PMX) 100 ML IVPB ×2 (02:57→15:25)
[2017-04-03] MEDS: PANTOPRAZOLE 40 MG INJ IV (04:12)
[2017-04-03] MEDS: ASA/ACETAMINOPHEN/CAFF TAB PO ×2 (04:12→09:42)
[2017-04-03] MEDS: MEGESTROL 40 MG TAB PO ×4 (09:00→20:00)
[2017-04-03] MEDS: ZINC SULFATE 220 MG CAP PO (09:00)
[2017-04-03] MEDS: MAGNESIUM HYDROXIDE 30ML CUP PO ×2 (09:43→20:00)
[2017-04-03] MEDS: FAMOTIDINE 20 MG TAB PO ×2 (09:43→19:59)
[2017-04-03] MEDS: LORATADINE 10 MG TAB PO (09:43)
[2017-04-03] MEDS: LISINOPRIL 20 MG TAB PO (09:44)
[2017-04-03] MEDS: FOLIC ACID 1 MG TAB PO (09:44)
[2017-04-03] MEDS: LACTOBACILLUS RHAMNOSUS CAP PO ×2 (09:44→20:00)
[2017-04-03] MEDS: CYANOCOBALAMIN 500 MCG TAB PO (09:47)
[2017-04-03 10:08] LABS: ADD MAN DIFF? NO
[2017-04-03 10:25] LABS: BASOPHILS % 0.6 % (0.0-2.0); EOSINOPHILS # 0.7 10^3/ul (0.0-0.5); EOSINOPHILS % 10.6 % (0.0-7.0); HEMOGLOBIN 9.1 g/dl (12.0-16.0); LYMPHOCYTES # 1.2 10^3/ul (0.8-2.9); LYMPHOCYTES % 18.3 % (15.0-51.0); MEAN CORPUSCULAR HEMOGLOBIN 28.2 pg (29.0-33.0); MEAN CORPUSCULAR HGB CONC 32.5 g/dl (32.0-37.0); MEAN CORPUSCULAR VOLUME 86.7 fl (82.0-101.0); MEAN PLATELET VOLUME 9.4 fl (7.4-10.4); MONOCYTE # 0.5 10^3/ul (0.3-0.9); MONOCYTES % 7.1 % (0.0-11.0); NEUTROPHIL # 4.2 10^3/ul (1.6-7.5); NEUTROPHILS % 62.8 % (39.0-77.0); PLATELET COUNT 285 10^3/UL (140-415); RED BLOOD COUNT 3.23 10^6/ul (4.20-5.40); RED CELL DISTRIBUTION WIDTH 15.9 % (11.5-14.5)
[2017-04-03 10:25] LABS: WHITE BLOOD COUNT 6.7 10^3/ul (4.8-10.8)
[2017-04-03 10:38] LABS: ALANINE AMINOTRANSFERASE 25 IU/L (13-69); ALBUMIN 2.8 g/dl (3.3-4.9); ALBUMIN/GLOBULIN RATIO 0.96; ALKALINE PHOSPHATASE 68 IU/L (42-121); ANION GAP 12 (8-16); ASPARTATE AMINO TRANSFERASE 11 IU/L (15-46); BILIRUBIN,INDIRECT 0.4 mg/dl (0-1.1); BILIRUBIN,TOTAL 0.4 mg/dl (0.2-1.3); BLOOD UREA NITROGEN 7 mg/dl (7-20); CALCIUM 9.1 mg/dl (8.4-10.2); CARBON DIOXIDE 29 mmol/L (21-31); CHLORIDE 101 mmol/L (97-110); CREATININE 0.75 mg/dl (0.44-1.00); GLUCOSE 86 mg/dl (70-220); POTASSIUM 3.5 mmol/L (3.5-5.1); TOTAL PROTEIN 5.7 g/dl (6.1-8.1)
[2017-04-03 10:42] LABS: SODIUM 138 mmol/L (135-144)
[2017-04-03 10:47] LABS: PREALBUMIN 11.3 mg/dl (17.6-36.0)
[2017-04-03] MEDS ORDERED: HYDROmorphONE 2 MG TAB PO ×2 (12:00)
[2017-04-03] MEDS: SOD FERRIC GLUC COMPLX 125 MG in SOD CHLORIDE 0.9% 100 ML IVPB (12:19)
[2017-04-03] MEDS ORDERED: ERTAPENEM SODIUM 1 GM in SOD CHLORIDE 0.9% 100 ML IVPB (14:00)
[2017-04-03] MEDS: DIGOXIN 0.125 MG TAB PO (14:05)
[2017-04-03 14:54] LABS: VANCOMYCIN,TROUGH 11.6 ug/ml (10.0-20.0)
[2017-04-03] MEDS: ERTAPENEM SODIUM 1 GM in SOD CHLORIDE 0.9% 100 ML IVPB (17:05)
[2017-04-03] MEDS: ONDANSETRON 4 MG INJ IV (19:59)
[2017-04-03] MEDS: QUETIAPINE 25 MG TAB PO ×2 (20:02→20:13)
[2017-04-04] MEDS: VANCOMYCIN 500MG/NS (PMX) 100 ML IVPB ×2 (02:17→15:14)
[2017-04-04] MEDS ORDERED: BARIUM SULF 2% 450 ML BTL (BERRY SMOOTHIE) PO (08:30)
[2017-04-04] MEDS: IOHEXOL 14.3 MG(I)/ML (ADULT) BTL PO (08:30)
[2017-04-04] MEDS: MEGESTROL 40 MG TAB PO ×4 (09:00→20:22)
[2017-04-04] MEDS: LACTOBACILLUS RHAMNOSUS CAP PO ×2 (09:08→20:21)
[2017-04-04] MEDS: CYANOCOBALAMIN 500 MCG TAB PO (09:08)
[2017-04-04] MEDS: MAGNESIUM HYDROXIDE 30ML CUP PO ×2 (09:08→20:27)
[2017-04-04] MEDS: LORATADINE 10 MG TAB PO (09:08)
[2017-04-04] MEDS: FAMOTIDINE 20 MG TAB PO ×2 (09:09→20:27)
[2017-04-04] MEDS: FOLIC ACID 1 MG TAB PO (09:09)
[2017-04-04] MEDS: ZINC SULFATE 220 MG CAP PO (09:09)
[2017-04-04] MEDS: LISINOPRIL 20 MG TAB PO (09:09)
[2017-04-04] MEDS: SOD FERRIC GLUC COMPLX 125 MG in SOD CHLORIDE 0.9% 100 ML IVPB (13:16)
[2017-04-04] MEDS: DIGOXIN 0.125 MG TAB PO (13:17)
[2017-04-04] MEDS: ERTAPENEM SODIUM 1 GM in SOD CHLORIDE 0.9% 100 ML IVPB (16:25)
[2017-04-04] MEDS: ASA/ACETAMINOPHEN/CAFF TAB PO (17:39)
[2017-04-04] MEDS: ONDANSETRON 4 MG INJ IV (17:39)
[2017-04-04] MEDS: QUETIAPINE 25 MG TAB PO (20:28)
[2017-04-05] MEDS: VANCOMYCIN 500MG/NS (PMX) 100 ML IVPB ×2 (01:52→15:35)
[2017-04-05] MEDS: MAGNESIUM HYDROXIDE 30ML CUP PO ×2 (09:00→21:00)
[2017-04-05 11:53] LABS: ADD MAN DIFF? NO
[2017-04-05 11:54] LABS: WHITE BLOOD COUNT 7.3 10^3/ul (4.8-10.8)
[2017-04-05 11:54] LABS: BASOPHIL # 0.1 10^3/ul (0.0-0.1); BASOPHILS % 0.7 % (0.0-2.0); EOSINOPHILS # 0.7 10^3/ul (0.0-0.5); EOSINOPHILS % 9.1 % (0.0-7.0); HEMATOCRIT 29.5 % (37.0-47.0); HEMOGLOBIN 9.6 g/dl (12.0-16.0); LYMPHOCYTES # 1.1 10^3/ul (0.8-2.9); LYMPHOCYTES % 14.6 % (15.0-51.0); MEAN CORPUSCULAR HEMOGLOBIN 28.2 pg (29.0-33.0); MEAN CORPUSCULAR HGB CONC 32.5 g/dl (32.0-37.0); MEAN CORPUSCULAR VOLUME 86.8 fl (82.0-101.0); MEAN PLATELET VOLUME 9.1 fl (7.4-10.4); MONOCYTE # 0.5 10^3/ul (0.3-0.9); MONOCYTES % 6.8 % (0.0-11.0); NEUTROPHILS % 68.2 % (39.0-77.0); PLATELET COUNT 318 10^3/UL (140-415); RED CELL DISTRIBUTION WIDTH 15.9 % (11.5-14.5)
[2017-04-05 12:17] LABS: ALANINE AMINOTRANSFERASE 28 IU/L (13-69); ALBUMIN/GLOBULIN RATIO 1.03; ALKALINE PHOSPHATASE 75 IU/L (42-121); ANION GAP 12 (8-16); ASPARTATE AMINO TRANSFERASE 12 IU/L (15-46); BILIRUBIN,INDIRECT 0.5 mg/dl (0-1.1); BILIRUBIN,TOTAL 0.5 mg/dl (0.2-1.3); BLOOD UREA NITROGEN 6 mg/dl (7-20); CALCIUM 9.1 mg/dl (8.4-10.2); CARBON DIOXIDE 29 mmol/L (21-31); CHLORIDE 105 mmol/L (97-110); CREATININE 0.77 mg/dl (0.44-1.00); GLUCOSE 91 mg/dl (70-220); POTASSIUM 3.8 mmol/L (3.5-5.1); SODIUM 142 mmol/L (135-144); TOTAL PROTEIN 5.9 g/dl (6.1-8.1)
[2017-04-05] MEDS: MEGESTROL 40 MG TAB PO ×4 (13:00→21:00)
[2017-04-05] MEDS: IOHEXOL 14.3 MG(I)/ML (ADULT) BTL PO (13:35)
[2017-04-05] MEDS: DIGOXIN 0.125 MG TAB PO (15:43)
[2017-04-05] MEDS: LISINOPRIL 20 MG TAB PO (15:43)
[2017-04-05] MEDS ORDERED: IOHEXOL 300MG/ML 150 ML BTL (15:53)
[2017-04-05] MEDS ORDERED: SOD CHLORIDE 0.9% 100 ML (15:53)
[2017-04-05] MEDS: ZINC SULFATE 220 MG CAP PO (17:08)
[2017-04-05] MEDS: SOD FERRIC GLUC COMPLX 125 MG in SOD CHLORIDE 0.9% 100 ML IVPB (17:08)
[2017-04-05] MEDS: FAMOTIDINE 20 MG TAB PO ×2 (17:08→20:59)
[2017-04-05] MEDS: LORATADINE 10 MG TAB PO (17:09)
[2017-04-05] MEDS: CYANOCOBALAMIN 500 MCG TAB PO (17:09)
[2017-04-05] MEDS: LACTOBACILLUS RHAMNOSUS CAP PO ×2 (17:10→21:00)
[2017-04-05] MEDS: FOLIC ACID 1 MG TAB PO (17:10)
[2017-04-05] MEDS: GLYCERIN (ADULT) SUPP PR (17:28)
[2017-04-05] MEDS: ERTAPENEM SODIUM 1 GM in SOD CHLORIDE 0.9% 100 ML IVPB (18:21)
[2017-04-05] MEDS: QUETIAPINE 25 MG TAB PO (21:00)
[2017-04-05] MEDS: ONDANSETRON 4 MG INJ IV (21:28)
[2017-04-06] MEDS: VANCOMYCIN 500MG/NS (PMX) 100 ML IVPB ×2 (02:42→13:29)
[2017-04-06] MEDS: ASA/ACETAMINOPHEN/CAFF TAB PO (03:02)
[2017-04-06] MEDS: ONDANSETRON 4 MG INJ IV (03:05)
[2017-04-06] MEDS: LACTOBACILLUS RHAMNOSUS CAP PO ×2 (09:00→21:00)
[2017-04-06] MEDS: CYANOCOBALAMIN 500 MCG TAB PO (09:00)
[2017-04-06] MEDS: FAMOTIDINE 20 MG TAB PO ×2 (09:00→22:11)
[2017-04-06] MEDS: MAGNESIUM HYDROXIDE 30ML CUP PO ×2 (09:00→22:11)
[2017-04-06] MEDS: FOLIC ACID 1 MG TAB PO (09:00)
[2017-04-06] MEDS: ZINC SULFATE 220 MG CAP PO (09:00)
[2017-04-06] MEDS: LORATADINE 10 MG TAB PO (09:00)
[2017-04-06] MEDS: MEGESTROL 40 MG TAB PO ×4 (09:00→21:00)
[2017-04-06] MEDS: LISINOPRIL 20 MG TAB PO (11:12)
[2017-04-06] MEDS: DIGOXIN 0.125 MG TAB PO (13:28)
[2017-04-06] MEDS: MINERAL OIL 133 ML ENEMA PR (16:29)
[2017-04-06] MEDS: ERTAPENEM SODIUM 1 GM in SOD CHLORIDE 0.9% 100 ML IVPB (16:34)
[2017-04-06] MEDS: QUETIAPINE 25 MG TAB PO (21:00)
[2017-04-07] MEDS: VANCOMYCIN 500MG/NS (PMX) 100 ML IVPB ×2 (02:25→13:35)
[2017-04-07] MEDS: MEGESTROL 40 MG TAB PO ×4 (09:00→21:00)
[2017-04-07] MEDS: LACTOBACILLUS RHAMNOSUS CAP PO ×2 (09:00→22:28)
[2017-04-07] MEDS: ZINC SULFATE 220 MG CAP PO (11:30)
[2017-04-07] MEDS: MAGNESIUM HYDROXIDE 30ML CUP PO ×2 (11:30→21:00)
[2017-04-07] MEDS: CYANOCOBALAMIN 500 MCG TAB PO (11:31)
[2017-04-07] MEDS: LORATADINE 10 MG TAB PO (11:31)
[2017-04-07] MEDS: FOLIC ACID 1 MG TAB PO (11:31)
[2017-04-07] MEDS: FAMOTIDINE 20 MG TAB PO (11:31)
[2017-04-07] MEDS: LISINOPRIL 20 MG TAB PO (11:32)
[2017-04-07] MEDS ORDERED: AL HYDROX/MG HYDROX/SIMETH 30 ML CUP PO (12:30)
[2017-04-07] MEDS: DIGOXIN 0.125 MG TAB PO (13:40)
[2017-04-07] MEDS: ERTAPENEM SODIUM 1 GM in SOD CHLORIDE 0.9% 100 ML IVPB (16:03)
[2017-04-07] MEDS: PANTOPRAZOLE 40 MG INJ IV (18:04)
[2017-04-07] MEDS: QUETIAPINE 25 MG TAB PO (21:00)
[2017-04-07] MEDS: METOCLOPRAMIDE 10 MG INJ IV (22:33)
[2017-04-08] MEDS: VANCOMYCIN 500MG/NS (PMX) 100 ML IVPB ×2 (01:57→15:38)
[2017-04-08] MEDS: PANTOPRAZOLE 40 MG INJ IV ×2 (06:28→17:19)
[2017-04-08] MEDS: LACTOBACILLUS RHAMNOSUS CAP PO ×2 (09:00→19:57)
[2017-04-08] MEDS: FOLIC ACID 1 MG TAB PO (09:00)
[2017-04-08] MEDS: CYANOCOBALAMIN 500 MCG TAB PO (09:00)
[2017-04-08] MEDS: ZINC SULFATE 220 MG CAP PO (09:00)
[2017-04-08] MEDS: MEGESTROL 40 MG TAB PO ×4 (09:00→19:57)
[2017-04-08] MEDS: LORATADINE 10 MG TAB PO (09:00)
[2017-04-08] MEDS: DIGOXIN 0.125 MG TAB PO (13:27)
[2017-04-08] MEDS: MAGNESIUM HYDROXIDE 30ML CUP PO ×2 (13:27→19:57)
[2017-04-08] MEDS: LISINOPRIL 20 MG TAB PO (13:28)
[2017-04-08 14:11] LABS: ADD MAN DIFF? NO
[2017-04-08 14:15] LABS: BASOPHIL # 0.1 10^3/ul (0.0-0.1); BASOPHILS % 0.9 % (0.0-2.0); EOSINOPHILS # 0.4 10^3/ul (0.0-0.5); EOSINOPHILS % 4.7 % (0.0-7.0); HEMATOCRIT 30.9 % (37.0-47.0); LYMPHOCYTES % 13.4 % (15.0-51.0); MEAN CORPUSCULAR HEMOGLOBIN 28.6 pg (29.0-33.0); MEAN CORPUSCULAR HGB CONC 32.4 g/dl (32.0-37.0); MEAN CORPUSCULAR VOLUME 88.3 fl (82.0-101.0); MEAN PLATELET VOLUME 9.4 fl (7.4-10.4); MONOCYTE # 0.6 10^3/ul (0.3-0.9); MONOCYTES % 7.9 % (0.0-11.0); NEUTROPHIL # 5.4 10^3/ul (1.6-7.5); NEUTROPHILS % 72.7 % (39.0-77.0); PLATELET COUNT 363 10^3/UL (140-415); RED CELL DISTRIBUTION WIDTH 15.7 % (11.5-14.5)
[2017-04-08 14:15] LABS: WHITE BLOOD COUNT 7.4 10^3/ul (4.8-10.8)
[2017-04-08 14:33] LABS: ALANINE AMINOTRANSFERASE 26 IU/L (13-69); ALBUMIN 3.1 g/dl (3.3-4.9); ALBUMIN/GLOBULIN RATIO 1.03; ALKALINE PHOSPHATASE 81 IU/L (42-121); ANION GAP 14 (8-16); ASPARTATE AMINO TRANSFERASE 14 IU/L (15-46); BILIRUBIN,INDIRECT 0.6 mg/dl (0-1.1); BILIRUBIN,TOTAL 0.6 mg/dl (0.2-1.3); BLOOD UREA NITROGEN 5 mg/dl (7-20); CALCIUM 8.9 mg/dl (8.4-10.2); CARBON DIOXIDE 29 mmol/L (21-31); CHLORIDE 104 mmol/L (97-110); CREATININE 0.74 mg/dl (0.44-1.00); GLUCOSE 108 mg/dl (70-220); LIPASE 133 U/L (23-300); POTASSIUM 3.7 mmol/L (3.5-5.1); SODIUM 143 mmol/L (135-144); TOTAL PROTEIN 6.1 g/dl (6.1-8.1)
[2017-04-08 14:37] LABS: VANCOMYCIN,TROUGH 11.7 ug/ml (10.0-20.0)
[2017-04-08] MEDS: ERTAPENEM SODIUM 1 GM in SOD CHLORIDE 0.9% 100 ML IVPB (17:20)
[2017-04-08] MEDS: ASA/ACETAMINOPHEN/CAFF TAB PO (17:43)
[2017-04-08] MEDS: QUETIAPINE 25 MG TAB PO (19:57)
[2017-04-09] MEDS: VANCOMYCIN 500MG/NS (PMX) 100 ML IVPB ×2 (01:54→15:15)
[2017-04-09] MEDS: PANTOPRAZOLE 40 MG INJ IV ×2 (06:16→18:00)
[2017-04-09] MEDS: LIDOCAINE 1% (MDV) 20 ML INJ ×2 (10:32)
[2017-04-09] MEDS: IOHEXOL 300MG/ML 30 ML BTL (10:42)
[2017-04-09] MEDS: ZINC SULFATE 220 MG CAP PO (12:49)
[2017-04-09] MEDS: ALTEPLASE (CATHFLO) 2 MG INJ CATHETER (12:49)
[2017-04-09] MEDS: CYANOCOBALAMIN 500 MCG TAB PO (12:49)
[2017-04-09] MEDS: MAGNESIUM HYDROXIDE 30ML CUP PO ×2 (12:50→21:00)
[2017-04-09] MEDS: FOLIC ACID 1 MG TAB PO (12:50)
[2017-04-09] MEDS: MEGESTROL 40 MG TAB PO ×4 (12:50→21:00)
[2017-04-09] MEDS: LACTOBACILLUS RHAMNOSUS CAP PO ×2 (12:50→21:00)
[2017-04-09] MEDS: LORATADINE 10 MG TAB PO (12:54)
[2017-04-09] MEDS: DIGOXIN 0.125 MG TAB PO (13:05)
[2017-04-09] MEDS: LISINOPRIL 20 MG TAB PO (13:11)
[2017-04-09] MEDS: ONDANSETRON 4 MG INJ IV (13:47)
[2017-04-09 16:28] LABS: ADD MAN DIFF? NO
[2017-04-09 16:39] LABS: BASOPHIL # 0.1 10^3/ul (0.0-0.1); BASOPHILS % 0.7 % (0.0-2.0); EOSINOPHILS # 0.4 10^3/ul (0.0-0.5); EOSINOPHILS % 5.1 % (0.0-7.0); HEMATOCRIT 29.9 % (37.0-47.0); HEMOGLOBIN 9.7 g/dl (12.0-16.0); LYMPHOCYTES % 14.3 % (15.0-51.0); MEAN CORPUSCULAR HGB CONC 32.4 g/dl (32.0-37.0); MEAN CORPUSCULAR VOLUME 89.3 fl (82.0-101.0); MEAN PLATELET VOLUME 10.5 fl (7.4-10.4); MONOCYTE # 0.6 10^3/ul (0.3-0.9); MONOCYTES % 7.8 % (0.0-11.0); NEUTROPHIL # 5.1 10^3/ul (1.6-7.5); NEUTROPHILS % 71.7 % (39.0-77.0); PLATELET COUNT 327 10^3/UL (140-415); RED BLOOD COUNT 3.35 10^6/ul (4.20-5.40); RED CELL DISTRIBUTION WIDTH 15.5 % (11.5-14.5)
[2017-04-09 16:39] LABS: WHITE BLOOD COUNT 7.1 10^3/ul (4.8-10.8)
[2017-04-09] MEDS: ERTAPENEM SODIUM 1 GM in SOD CHLORIDE 0.9% 100 ML IVPB (16:54)
[2017-04-09 16:59] LABS: ANION GAP 15 (8-16); BLOOD UREA NITROGEN 6 mg/dl (7-20); CALCIUM 8.7 mg/dl (8.4-10.2); CARBON DIOXIDE 27 mmol/L (21-31); CHLORIDE 103 mmol/L (97-110); CREATININE 0.75 mg/dl (0.44-1.00); GLUCOSE 101 mg/dl (70-220); MAGNESIUM 1.7 mg/dl (1.7-2.5); PHOSPHORUS 4.1 mg/dl (2.5-4.9); POTASSIUM 3.3 mmol/L (3.5-5.1); SODIUM 142 mmol/L (135-144)
[2017-04-09] MEDS: QUETIAPINE 25 MG TAB PO (21:00)
[2017-04-10] MEDS: VANCOMYCIN 500MG/NS (PMX) 100 ML IVPB ×2 (02:12→14:47)
[2017-04-10] MEDS: PANTOPRAZOLE 40 MG INJ IV ×2 (06:07→19:51)
[2017-04-10] MEDS: FOLIC ACID 1 MG TAB PO (09:00)
[2017-04-10] MEDS: MEGESTROL 40 MG TAB PO ×4 (09:00→21:00)
[2017-04-10] MEDS: ASA/ACETAMINOPHEN/CAFF TAB PO ×2 (10:50→16:37)
[2017-04-10] MEDS: POTASSIUM CHLORIDE (SR) 20 MEQ TAB PO (10:51)
[2017-04-10] MEDS: MAGNESIUM OXIDE 400 MG TAB GTB ×2 (10:52→20:57)
[2017-04-10] MEDS: CYANOCOBALAMIN 500 MCG TAB PO (11:02)
[2017-04-10] MEDS: LISINOPRIL 20 MG TAB PO (11:03)
[2017-04-10] MEDS: ZINC SULFATE 220 MG CAP PO (11:03)
[2017-04-10] MEDS: LORATADINE 10 MG TAB PO (11:03)
[2017-04-10] MEDS: MAGNESIUM HYDROXIDE 30ML CUP PO ×2 (11:04→21:00)
[2017-04-10] MEDS: LACTOBACILLUS RHAMNOSUS CAP PO ×2 (11:04→20:58)
[2017-04-10] MEDS: DIGOXIN 0.125 MG TAB PO (13:00)
[2017-04-10] MEDS: DEXTROSE 5%-0.45% NACL 1,000 ML IV (14:48)
[2017-04-10 15:53] LABS: ADD MAN DIFF? NO
[2017-04-10 15:54] LABS: BASOPHILS % 0.5 % (0.0-2.0); EOSINOPHILS # 0.4 10^3/ul (0.0-0.5); HEMATOCRIT 28.6 % (37.0-47.0); HEMOGLOBIN 9.4 g/dl (12.0-16.0); LYMPHOCYTES # 1.2 10^3/ul (0.8-2.9); MEAN CORPUSCULAR HEMOGLOBIN 29.2 pg (29.0-33.0); MEAN CORPUSCULAR HGB CONC 32.9 g/dl (32.0-37.0); MEAN CORPUSCULAR VOLUME 88.8 fl (82.0-101.0); MEAN PLATELET VOLUME 9.6 fl (7.4-10.4); MONOCYTE # 0.5 10^3/ul (0.3-0.9); MONOCYTES % 8.1 % (0.0-11.0); NEUTROPHILS % 66.2 % (39.0-77.0); PLATELET COUNT 309 10^3/UL (140-415); RED BLOOD COUNT 3.22 10^6/ul (4.20-5.40); RED CELL DISTRIBUTION WIDTH 15.2 % (11.5-14.5)
[2017-04-10 16:21] LABS: ANION GAP 14 (8-16); BLOOD UREA NITROGEN 5 mg/dl (7-20); CALCIUM 8.5 mg/dl (8.4-10.2); CARBON DIOXIDE 27 mmol/L (21-31); CHLORIDE 103 mmol/L (97-110); CREATININE 0.69 mg/dl (0.44-1.00); GLUCOSE 93 mg/dl (70-220); MAGNESIUM 1.7 mg/dl (1.7-2.5); PHOSPHORUS 4.5 mg/dl (2.5-4.9); POTASSIUM 3.2 mmol/L (3.5-5.1); SODIUM 141 mmol/L (135-144)
[2017-04-10] MEDS ORDERED: ALTEPLASE (CATHFLO) 2 MG INJ CATHETER (16:30)
[2017-04-10] MEDS: ERTAPENEM SODIUM 1 GM in SOD CHLORIDE 0.9% 100 ML IVPB (16:43)
[2017-04-10 17:30] LABS: IRON 32 ug/dl (35-150)
[2017-04-10 17:39] LABS: % IRON SATURATION 18 % SAT (22-52); TOTAL IRON BINDING CAPACITY 182 ug/dl (241-421)
[2017-04-10 18:48] LABS: FOLATE 10.9 ng/ml (2.8-20.0)
[2017-04-10] MEDS: QUETIAPINE 25 MG TAB PO (21:00)
[2017-04-11] MEDS: VANCOMYCIN 500MG/NS (PMX) 100 ML IVPB ×2 (01:48→16:15)
[2017-04-11] MEDS: PANTOPRAZOLE 40 MG INJ IV ×2 (05:11→18:05)
[2017-04-11 08:45] LABS: ADD MAN DIFF? NO
[2017-04-11 08:55] LABS: BASOPHILS % 0.6 % (0.0-2.0); EOSINOPHILS # 0.5 10^3/ul (0.0-0.5); EOSINOPHILS % 7.2 % (0.0-7.0); HEMATOCRIT 28.6 % (37.0-47.0); HEMOGLOBIN 9.3 g/dl (12.0-16.0); LYMPHOCYTES % 14.8 % (15.0-51.0); MEAN CORPUSCULAR HEMOGLOBIN 28.9 pg (29.0-33.0); MEAN CORPUSCULAR HGB CONC 32.5 g/dl (32.0-37.0); MEAN CORPUSCULAR VOLUME 88.8 fl (82.0-101.0); MEAN PLATELET VOLUME 9.6 fl (7.4-10.4); MONOCYTE # 0.5 10^3/ul (0.3-0.9); MONOCYTES % 8.1 % (0.0-11.0); NEUTROPHIL # 4.6 10^3/ul (1.6-7.5); NEUTROPHILS % 68.8 % (39.0-77.0); PLATELET COUNT 330 10^3/UL (140-415); RED BLOOD COUNT 3.22 10^6/ul (4.20-5.40)
[2017-04-11 08:55] LABS: WHITE BLOOD COUNT 6.6 10^3/ul (4.8-10.8)
[2017-04-11] MEDS: MEGESTROL 40 MG TAB PO ×4 (09:00→20:52)
[2017-04-11] MEDS: MAGNESIUM HYDROXIDE 30ML CUP PO ×2 (09:00→20:52)
[2017-04-11] MEDS: LACTOBACILLUS RHAMNOSUS CAP PO ×3 (09:00→20:51)
[2017-04-11] MEDS: LORATADINE 10 MG TAB PO ×2 (09:00→16:15)
[2017-04-11] MEDS: CYANOCOBALAMIN 500 MCG TAB PO (09:00)
[2017-04-11 09:08] LABS: ANION GAP 12 (8-16); BLOOD UREA NITROGEN 6 mg/dl (7-20); CALCIUM 8.7 mg/dl (8.4-10.2); CARBON DIOXIDE 30 mmol/L (21-31); CHLORIDE 105 mmol/L (97-110); CREATININE 0.69 mg/dl (0.44-1.00); GLUCOSE 98 mg/dl (70-220); MAGNESIUM 1.6 mg/dl (1.7-2.5); PHOSPHORUS 4.8 mg/dl (2.5-4.9); SODIUM 144 mmol/L (135-144)
[2017-04-11] MEDS: SOD FERRIC GLUC COMPLX 125 MG in SOD CHLORIDE 0.9% 100 ML IVPB (11:08)
[2017-04-11] MEDS: LISINOPRIL 20 MG TAB PO (11:21)
[2017-04-11] MEDS: POTASSIUM CHLORIDE 50 ML IVPB ×3 (11:26→16:57)
[2017-04-11] MEDS: DEXTROSE 5%-0.45% NACL 1,000 ML IV (14:00)
[2017-04-11] MEDS: MAGNESIUM SULFATE 4 GM/100 ML 100 ML IVPB (14:00)
[2017-04-11] MEDS: DIGOXIN 0.125 MG TAB PO (16:14)
[2017-04-11] MEDS: MAGNESIUM OXIDE 400 MG TAB GTB ×2 (16:15→20:51)
[2017-04-11] MEDS: FOLIC ACID 1 MG TAB PO (16:16)
[2017-04-11] MEDS: ZINC SULFATE 220 MG CAP PO (16:16)
[2017-04-11] MEDS: ERTAPENEM SODIUM 1 GM in SOD CHLORIDE 0.9% 100 ML IVPB (18:06)
[2017-04-11] MEDS: ONDANSETRON 4 MG INJ IV (20:48)
[2017-04-11] MEDS: QUETIAPINE 25 MG TAB PO (20:52)
[2017-04-12] MEDS: VANCOMYCIN 500MG/NS (PMX) 100 ML IVPB ×2 (02:07→15:00)
[2017-04-12] MEDS: ASA/ACETAMINOPHEN/CAFF TAB PO (02:19)
[2017-04-12] MEDS: DEXTROSE 5%-0.45% NACL 1,000 ML IV ×3 (05:08→21:06)
[2017-04-12] MEDS: PANTOPRAZOLE 40 MG INJ IV ×2 (05:12→18:00)
[2017-04-12] MEDS: MAGNESIUM HYDROXIDE 30ML CUP PO ×2 (09:00→21:00)
[2017-04-12] MEDS: MAGNESIUM OXIDE 400 MG TAB GTB ×2 (10:54→21:05)
[2017-04-12] MEDS: CYANOCOBALAMIN 500 MCG TAB PO (10:54)
[2017-04-12] MEDS: ZINC SULFATE 220 MG CAP PO (10:54)
[2017-04-12] MEDS: LORATADINE 10 MG TAB PO (10:55)
[2017-04-12] MEDS: FOLIC ACID 1 MG TAB PO (10:55)
[2017-04-12] MEDS: LACTOBACILLUS RHAMNOSUS CAP PO ×2 (10:55→21:05)
[2017-04-12] MEDS: LISINOPRIL 20 MG TAB PO (10:55)
[2017-04-12] MEDS: ENOXAPARIN 40 MG/0.4 ML SYG SC (10:58)
[2017-04-12] MEDS: ONDANSETRON 4 MG INJ IV ×3 (11:08→21:27)
[2017-04-12 12:03] LABS: ADD MAN DIFF? NO
[2017-04-12 12:19] LABS: WHITE BLOOD COUNT 5.8 10^3/ul (4.8-10.8)
[2017-04-12 12:19] LABS: BASOPHIL # 0.1 10^3/ul (0.0-0.1); BASOPHILS % 0.9 % (0.0-2.0); EOSINOPHILS # 0.4 10^3/ul (0.0-0.5); EOSINOPHILS % 7.6 % (0.0-7.0); HEMATOCRIT 31.1 % (37.0-47.0); HEMOGLOBIN 10.2 g/dl (12.0-16.0); LYMPHOCYTES % 16.3 % (15.0-51.0); MEAN CORPUSCULAR HEMOGLOBIN 29.2 pg (29.0-33.0); MEAN CORPUSCULAR HGB CONC 32.8 g/dl (32.0-37.0); MEAN CORPUSCULAR VOLUME 89.1 fl (82.0-101.0); MONOCYTE # 0.4 10^3/ul (0.3-0.9); NEUTROPHILS % 68.7 % (39.0-77.0); PLATELET COUNT 354 10^3/UL (140-415); RED BLOOD COUNT 3.49 10^6/ul (4.20-5.40); RED CELL DISTRIBUTION WIDTH 15.3 % (11.5-14.5)
[2017-04-12 12:42] LABS: ANION GAP 14 (8-16); BLOOD UREA NITROGEN 3 mg/dl (7-20); CALCIUM 8.3 mg/dl (8.4-10.2); CARBON DIOXIDE 28 mmol/L (21-31); CHLORIDE 104 mmol/L (97-110); CREATININE 0.68 mg/dl (0.44-1.00); GLUCOSE 142 mg/dl (70-220); MAGNESIUM 2.2 mg/dl (1.7-2.5); POTASSIUM 3.1 mmol/L (3.5-5.1); SODIUM 143 mmol/L (135-144)
[2017-04-12] MEDS: SOD FERRIC GLUC COMPLX 125 MG in SOD CHLORIDE 0.9% 100 ML IVPB (13:54)
[2017-04-12] MEDS: DIGOXIN 0.125 MG TAB PO (13:54)
[2017-04-12] MEDS: POTASSIUM CHLORIDE (SR) 20 MEQ TAB PO ×4 (13:55→19:42)
[2017-04-12] MEDS: ERTAPENEM SODIUM 1 GM in SOD CHLORIDE 0.9% 100 ML IVPB (16:20)
[2017-04-12] MEDS: QUETIAPINE 25 MG TAB PO (21:00)
[2017-04-13] MEDS: DEXTROSE 5%-0.45% NACL 1,000 ML IV ×3 (00:48→18:07)
[2017-04-13] MEDS: VANCOMYCIN 500MG/NS (PMX) 100 ML IVPB ×2 (02:07→16:13)
[2017-04-13] MEDS: PANTOPRAZOLE 40 MG INJ IV ×2 (06:00→17:41)
[2017-04-13] MEDS: LISINOPRIL 20 MG TAB PO (09:29)
[2017-04-13] MEDS: MAGNESIUM HYDROXIDE 30ML CUP PO ×2 (09:30→20:47)
[2017-04-13] MEDS: LORATADINE 10 MG TAB PO (09:30)
[2017-04-13] MEDS: ZINC SULFATE 220 MG CAP PO (09:30)
[2017-04-13] MEDS: FOLIC ACID 1 MG TAB PO (09:30)
[2017-04-13] MEDS: MAGNESIUM OXIDE 400 MG TAB GTB ×2 (09:30→20:46)
[2017-04-13] MEDS: CYANOCOBALAMIN 500 MCG TAB PO (09:30)
[2017-04-13] MEDS: LACTOBACILLUS RHAMNOSUS CAP PO ×2 (09:30→20:45)
[2017-04-13] MEDS: ENOXAPARIN 40 MG/0.4 ML SYG SC (09:32)
[2017-04-13] MEDS: SOD FERRIC GLUC COMPLX 125 MG in SOD CHLORIDE 0.9% 100 ML IVPB (10:51)
[2017-04-13] MEDS: ONDANSETRON 4 MG INJ IV ×3 (10:51→20:44)
[2017-04-13 11:03] LABS: ADD MAN DIFF? NO
[2017-04-13 11:08] LABS: BASOPHIL # 0.1 10^3/ul (0.0-0.1); BASOPHILS % 0.9 % (0.0-2.0); EOSINOPHILS # 0.5 10^3/ul (0.0-0.5); EOSINOPHILS % 8.3 % (0.0-7.0); HEMATOCRIT 28.7 % (37.0-47.0); HEMOGLOBIN 9.3 g/dl (12.0-16.0); LYMPHOCYTES # 1.1 10^3/ul (0.8-2.9); LYMPHOCYTES % 19.1 % (15.0-51.0); MEAN CORPUSCULAR HGB CONC 32.4 g/dl (32.0-37.0); MEAN CORPUSCULAR VOLUME 89.4 fl (82.0-101.0); MEAN PLATELET VOLUME 9.9 fl (7.4-10.4); MONOCYTE # 0.5 10^3/ul (0.3-0.9); MONOCYTES % 8.8 % (0.0-11.0); NEUTROPHIL # 3.6 10^3/ul (1.6-7.5); NEUTROPHILS % 62.6 % (39.0-77.0); PLATELET COUNT 323 10^3/UL (140-415); RED BLOOD COUNT 3.21 10^6/ul (4.20-5.40); RED CELL DISTRIBUTION WIDTH 15.2 % (11.5-14.5)
[2017-04-13 11:08] LABS: WHITE BLOOD COUNT 5.8 10^3/ul (4.8-10.8)
[2017-04-13 11:27] LABS: ANION GAP 11 (8-16); BLOOD UREA NITROGEN 4 mg/dl (7-20); CALCIUM 8.7 mg/dl (8.4-10.2); CARBON DIOXIDE 28 mmol/L (21-31); CHLORIDE 105 mmol/L (97-110); GLUCOSE 89 mg/dl (70-220); MAGNESIUM 1.9 mg/dl (1.7-2.5); POTASSIUM 4.1 mmol/L (3.5-5.1); SODIUM 140 mmol/L (135-144)
[2017-04-13] MEDS: DIGOXIN 0.125 MG TAB PO (14:05)
[2017-04-13 16:12] LABS: VANCOMYCIN,TROUGH 8.7 ug/ml (10.0-20.0)
[2017-04-13] MEDS: ERTAPENEM SODIUM 1 GM in SOD CHLORIDE 0.9% 100 ML IVPB (17:41)
[2017-04-13 17:43] LABS: ADD UMIC NO; UR ASCORBIC ACID NEGATIVE (NEGATIVE); UR BILIRUBIN (Dip) NEGATIVE (NEGATIVE); UR BLOOD (Dip) NEGATIVE (NEGATIVE); UR CLARITY CLEAR (CLEAR); UR COLOR STRAW (YELLOW); UR GLUCOSE (Dip) NEGATIVE (NEGATIVE); UR KETONES (Dip) NEGATIVE (NEGATIVE); UR LEUKOCYTE ESTERASE (Dip) NEGATIVE Leu/ul (NEGATIVE); UR NITRITE (Dip) NEGATIVE (NEGATIVE); UR SPECIFIC GRAVITY (Dip) 1.003 (1.003-1.030); UR TOTAL PROTEIN (Dip) NEGATIVE (NEGATIVE); UR UROBILINOGEN (Dip) NEGATIVE (NEGATIVE)
[2017-04-13] MEDS: ASA/ACETAMINOPHEN/CAFF TAB PO (20:45)
[2017-04-13] MEDS: QUETIAPINE 25 MG TAB PO (20:47)
[2017-04-14] MEDS: VANCOMYCIN 750 MG in DEXTROSE 5% 150 ML IVPB ×2 (01:46→13:20)
[2017-04-14] MEDS: DEXTROSE 5%-0.45% NACL 1,000 ML IV ×4 (01:46→21:37)
[2017-04-14] MEDS: PANTOPRAZOLE 40 MG INJ IV ×2 (06:00→17:30)
[2017-04-14] MEDS: ENOXAPARIN 40 MG/0.4 ML SYG SC (09:22)
[2017-04-14] MEDS: DIATR MEGLU/DIATRIZOATE SODIUM 120 ML BTL (11:13)
[2017-04-14 11:45] LABS: ADD MAN DIFF? NO
[2017-04-14 12:13] LABS: WHITE BLOOD COUNT 9.1 10^3/ul (4.8-10.8)
[2017-04-14 12:13] LABS: BASOPHILS % 0.4 % (0.0-2.0); EOSINOPHILS # 0.6 10^3/ul (0.0-0.5); EOSINOPHILS % 6.3 % (0.0-7.0); HEMATOCRIT 33.1 % (37.0-47.0); HEMOGLOBIN 10.8 g/dl (12.0-16.0); LYMPHOCYTES # 1.8 10^3/ul (0.8-2.9); LYMPHOCYTES % 19.5 % (15.0-51.0); MEAN CORPUSCULAR HGB CONC 32.6 g/dl (32.0-37.0); MEAN PLATELET VOLUME 10.5 fl (7.4-10.4); MONOCYTE # 0.7 10^3/ul (0.3-0.9); MONOCYTES % 7.5 % (0.0-11.0); PLATELET COUNT 392 10^3/UL (140-415); RED BLOOD COUNT 3.72 10^6/ul (4.20-5.40)
[2017-04-14 12:14] LABS: ALANINE AMINOTRANSFERASE 22 IU/L (13-69); ALBUMIN 3.3 g/dl (3.3-4.9); ALKALINE PHOSPHATASE 89 IU/L (42-121); ANION GAP 14 (8-16); ASPARTATE AMINO TRANSFERASE 16 IU/L (15-46); BILIRUBIN,INDIRECT 0.5 mg/dl (0-1.1); BILIRUBIN,TOTAL 0.5 mg/dl (0.2-1.3); BLOOD UREA NITROGEN 3 mg/dl (7-20); CALCIUM 9.6 mg/dl (8.4-10.2); CARBON DIOXIDE 30 mmol/L (21-31); CHLORIDE 105 mmol/L (97-110); CREATININE 0.73 mg/dl (0.44-1.00); GLUCOSE 94 mg/dl (70-220); POTASSIUM 3.8 mmol/L (3.5-5.1); SODIUM 145 mmol/L (135-144); TOTAL PROTEIN 6.6 g/dl (6.1-8.1)
[2017-04-14] MEDS: LISINOPRIL 20 MG TAB PO (13:18)
[2017-04-14] MEDS: LACTOBACILLUS RHAMNOSUS CAP PO ×2 (13:19→21:36)
[2017-04-14] MEDS: FOLIC ACID 1 MG TAB PO (13:19)
[2017-04-14] MEDS: LORATADINE 10 MG TAB PO (13:19)
[2017-04-14] MEDS: ZINC SULFATE 220 MG CAP PO (13:19)
[2017-04-14] MEDS: MAGNESIUM OXIDE 400 MG TAB GTB ×2 (13:19→21:36)
[2017-04-14] MEDS: DIGOXIN 0.125 MG TAB PO (13:20)
[2017-04-14] MEDS: ONDANSETRON 4 MG INJ IV ×3 (13:20→21:37)
[2017-04-14] MEDS: MAGNESIUM HYDROXIDE 30ML CUP PO ×2 (13:21→21:36)
[2017-04-14] MEDS: CYANOCOBALAMIN 500 MCG TAB PO (13:21)
[2017-04-14] MEDS: ERTAPENEM SODIUM 1 GM in SOD CHLORIDE 0.9% 100 ML IVPB (16:39)
[2017-04-15] MEDS: VANCOMYCIN 750 MG in DEXTROSE 5% 150 ML IVPB ×2 (01:24→13:48)
[2017-04-15] MEDS: PANTOPRAZOLE 40 MG INJ IV ×2 (05:54→18:24)
[2017-04-15] MEDS: MAGNESIUM HYDROXIDE 30ML CUP PO ×2 (09:00→19:39)
[2017-04-15] MEDS: MAGNESIUM OXIDE 400 MG TAB GTB ×2 (09:00→19:39)
[2017-04-15] MEDS: ZINC SULFATE 220 MG CAP PO (09:00)
[2017-04-15] MEDS: FOLIC ACID 1 MG TAB PO (09:00)
[2017-04-15] MEDS: CYANOCOBALAMIN 500 MCG TAB PO (09:00)
[2017-04-15] MEDS: LACTOBACILLUS RHAMNOSUS CAP PO ×2 (09:00→19:39)
[2017-04-15] MEDS: LORATADINE 10 MG TAB PO (09:00)
[2017-04-15] MEDS: LISINOPRIL 20 MG TAB PO (09:48)
[2017-04-15] MEDS: ONDANSETRON 4 MG INJ IV ×4 (09:59→18:24)
[2017-04-15] MEDS: ENOXAPARIN 40 MG/0.4 ML SYG SC (11:04)
[2017-04-15] MEDS: DIGOXIN 0.125 MG TAB PO (13:51)
[2017-04-15] MEDS: DEXTROSE 5%-0.45% NACL 1,000 ML IV (13:54)
[2017-04-15] MEDS: ERTAPENEM SODIUM 1 GM in SOD CHLORIDE 0.9% 100 ML IVPB (16:34)
[2017-04-16] MEDS: ONDANSETRON 4 MG INJ IV ×4 (00:50→20:30)
[2017-04-16 02:18] LABS: VANCOMYCIN,TROUGH 15.8 ug/ml (10.0-20.0)
[2017-04-16] MEDS: VANCOMYCIN 750 MG in DEXTROSE 5% 150 ML IVPB ×2 (02:51→13:38)
[2017-04-16] MEDS: PANTOPRAZOLE 40 MG INJ IV ×2 (06:01→17:23)
[2017-04-16] MEDS: DEXTROSE 5%-0.45% NACL 1,000 ML IV (06:56)
[2017-04-16] MEDS: MAGNESIUM OXIDE 400 MG TAB GTB ×2 (10:33→20:29)
[2017-04-16] MEDS: FOLIC ACID 1 MG TAB PO (10:33)
[2017-04-16] MEDS: LACTOBACILLUS RHAMNOSUS CAP PO ×2 (10:33→20:30)
[2017-04-16] MEDS: LISINOPRIL 20 MG TAB PO (10:33)
[2017-04-16] MEDS: ZINC SULFATE 220 MG CAP PO (10:34)
[2017-04-16] MEDS: LORATADINE 10 MG TAB PO (10:34)
[2017-04-16] MEDS: MAGNESIUM HYDROXIDE 30ML CUP PO ×2 (10:34→21:00)
[2017-04-16] MEDS: CYANOCOBALAMIN 500 MCG TAB PO (10:34)
[2017-04-16 10:51] LABS: ADD MAN DIFF? NO
[2017-04-16 10:54] LABS: BASOPHIL # 0.1 10^3/ul (0.0-0.1); BASOPHILS % 0.8 % (0.0-2.0); EOSINOPHILS # 0.5 10^3/ul (0.0-0.5); EOSINOPHILS % 7.3 % (0.0-7.0); HEMATOCRIT 29.9 % (37.0-47.0); HEMOGLOBIN 9.8 g/dl (12.0-16.0); MEAN CORPUSCULAR HEMOGLOBIN 29.2 pg (29.0-33.0); MEAN CORPUSCULAR HGB CONC 32.8 g/dl (32.0-37.0); MEAN PLATELET VOLUME 9.8 fl (7.4-10.4); MONOCYTE # 0.5 10^3/ul (0.3-0.9); MONOCYTES % 7.9 % (0.0-11.0); NEUTROPHIL # 4.2 10^3/ul (1.6-7.5); NEUTROPHILS % 67.7 % (39.0-77.0); PLATELET COUNT 296 10^3/UL (140-415); RED BLOOD COUNT 3.36 10^6/ul (4.20-5.40); RED CELL DISTRIBUTION WIDTH 14.4 % (11.5-14.5)
[2017-04-16 10:54] LABS: WHITE BLOOD COUNT 6.2 10^3/ul (4.8-10.8)
[2017-04-16] MEDS: ENOXAPARIN 40 MG/0.4 ML SYG SC (10:54)
[2017-04-16 11:19] LABS: MAGNESIUM 1.7 mg/dl (1.7-2.5)
[2017-04-16 11:19] LABS: PHOSPHORUS 4.5 mg/dl (2.5-4.9)
[2017-04-16 12:09] LABS: ANION GAP 9 (8-16); BLOOD UREA NITROGEN 3 mg/dl (7-20); CALCIUM 9.1 mg/dl (8.4-10.2); CARBON DIOXIDE 30 mmol/L (21-31); CHLORIDE 103 mmol/L (97-110); CREATININE 0.73 mg/dl (0.44-1.00); GLUCOSE 91 mg/dl (70-220); POTASSIUM 3.4 mmol/L (3.5-5.1); SODIUM 139 mmol/L (135-144)
[2017-04-16] MEDS: POTASSIUM CHLORIDE (SR) 20 MEQ TAB PO (13:38)
[2017-04-16] MEDS: DIGOXIN 0.125 MG TAB PO (13:38)
[2017-04-16] MEDS: ERTAPENEM SODIUM IVPB (16:32)
[2017-04-16] MEDS: SOD CHLORIDE 0.9% IVPB (16:32)
[2017-04-16] MEDS: MAGNESIUM SULFATE 3 GM in DEXTROSE 5% 100 ML IVPB (17:23)
[2017-04-17] MEDS: ONDANSETRON 4 MG INJ IV ×4 (00:50→19:55)
[2017-04-17] MEDS: DEXTROSE 5%-0.45% NACL 1,000 ML IV ×3 (02:07→14:49)
[2017-04-17] MEDS: VANCOMYCIN 750 MG in DEXTROSE 5% 150 ML IVPB ×2 (02:12→14:49)
[2017-04-17] MEDS: PANTOPRAZOLE 40 MG INJ IV ×2 (05:19→17:05)
[2017-04-17] MEDS: LACTOBACILLUS RHAMNOSUS CAP PO ×2 (09:00→20:48)
[2017-04-17] MEDS: LORATADINE 10 MG TAB PO (09:00)
[2017-04-17] MEDS: FOLIC ACID 1 MG TAB PO (09:00)
[2017-04-17] MEDS: ZINC SULFATE 220 MG CAP PO (09:53)
[2017-04-17] MEDS: CYANOCOBALAMIN 500 MCG TAB PO (09:53)
[2017-04-17] MEDS: MAGNESIUM HYDROXIDE 30ML CUP PO ×2 (09:54→20:48)
[2017-04-17] MEDS: LISINOPRIL 20 MG TAB PO (09:54)
[2017-04-17] MEDS: MAGNESIUM OXIDE 400 MG TAB GTB ×2 (09:54→20:48)
[2017-04-17] MEDS: ENOXAPARIN 40 MG/0.4 ML SYG SC (10:17)
[2017-04-17] MEDS: METOCLOPRAMIDE 10 MG INJ IV (13:11)
[2017-04-17] MEDS: DIGOXIN 0.125 MG TAB PO (13:15)
[2017-04-17] MEDS: ERTAPENEM SODIUM IVPB (17:05)
[2017-04-17] MEDS: SOD CHLORIDE 0.9% IVPB (17:05)
[2017-04-18] MEDS: ONDANSETRON 4 MG INJ IV ×4 (00:24→18:19)
[2017-04-18 01:50] LABS: VANCOMYCIN,TROUGH 14.9 ug/ml (10.0-20.0)
[2017-04-18] MEDS: VANCOMYCIN 750 MG in DEXTROSE 5% 150 ML IVPB ×2 (02:01→14:25)
[2017-04-18] MEDS: DEXTROSE 5%-0.45% NACL 1,000 ML IV (04:26)
[2017-04-18] MEDS: PANTOPRAZOLE 40 MG INJ IV ×2 (05:07→18:12)
[2017-04-18] MEDS: FOLIC ACID 1 MG TAB PO (09:00)
[2017-04-18] MEDS: MAGNESIUM OXIDE 400 MG TAB GTB ×2 (09:00→20:50)
[2017-04-18] MEDS: CYANOCOBALAMIN 500 MCG TAB PO (09:00)
[2017-04-18] MEDS: ZINC SULFATE 220 MG CAP PO (09:00)
[2017-04-18] MEDS: IOHEXOL 300MG/ML 150 ML BTL (10:01)
[2017-04-18] MEDS: SOD CHLORIDE 0.9% 100 ML (10:01)
[2017-04-18] MEDS: LACTOBACILLUS RHAMNOSUS CAP PO ×2 (10:09→20:34)
[2017-04-18] MEDS: MAGNESIUM HYDROXIDE 30ML CUP PO ×2 (10:10→20:51)
[2017-04-18] MEDS: LISINOPRIL 20 MG TAB PO (10:11)
[2017-04-18] MEDS: LORATADINE 10 MG TAB PO (10:11)
[2017-04-18] MEDS: ENOXAPARIN 40 MG/0.4 ML SYG SC (10:15)
[2017-04-18 11:17] LABS: ADD MAN DIFF? NO
[2017-04-18 11:37] LABS: WHITE BLOOD COUNT 6.5 10^3/ul (4.8-10.8)
[2017-04-18 11:37] LABS: BASOPHILS % 0.6 % (0.0-2.0); EOSINOPHILS # 0.5 10^3/ul (0.0-0.5); EOSINOPHILS % 7.8 % (0.0-7.0); HEMATOCRIT 31.4 % (37.0-47.0); HEMOGLOBIN 10.2 g/dl (12.0-16.0); LYMPHOCYTES % 15.5 % (15.0-51.0); MEAN CORPUSCULAR HGB CONC 32.5 g/dl (32.0-37.0); MEAN CORPUSCULAR VOLUME 89.2 fl (82.0-101.0); MEAN PLATELET VOLUME 10.6 fl (7.4-10.4); MONOCYTE # 0.5 10^3/ul (0.3-0.9); MONOCYTES % 7.3 % (0.0-11.0); NEUTROPHIL # 4.4 10^3/ul (1.6-7.5); NEUTROPHILS % 68.3 % (39.0-77.0); PLATELET COUNT 284 10^3/UL (140-415); RED BLOOD COUNT 3.52 10^6/ul (4.20-5.40); RED CELL DISTRIBUTION WIDTH 14.3 % (11.5-14.5)
[2017-04-18 11:48] LABS: MAGNESIUM 1.9 mg/dl (1.7-2.5)
[2017-04-18 11:55] LABS: ANION GAP 12 (8-16); BLOOD UREA NITROGEN 6 mg/dl (7-20); CALCIUM 9.3 mg/dl (8.4-10.2); CARBON DIOXIDE 30 mmol/L (21-31); CHLORIDE 101 mmol/L (97-110); CREATININE 0.73 mg/dl (0.44-1.00); GLUCOSE 114 mg/dl (70-220); POTASSIUM 3.7 mmol/L (3.5-5.1); SODIUM 139 mmol/L (135-144)
[2017-04-18] MEDS ORDERED: POTASSIUM CHLORIDE 20 MEQ in DEXTROSE 5% 100 ML IVPB (12:30)
[2017-04-18] MEDS: MAGNESIUM SULFATE 1 GM/D5W 100 ML IVPB (13:11)
[2017-04-18] MEDS: DIGOXIN 0.125 MG TAB PO (13:35)
[2017-04-18] MEDS: POTASSIUM CHLORIDE 50 ML IVPB ×2 (16:33→18:12)
[2017-04-18] MEDS: ERTAPENEM SODIUM IVPB (16:33)
[2017-04-18] MEDS: SOD CHLORIDE 0.9% IVPB (16:33)
[2017-04-19] MEDS: VANCOMYCIN 750 MG in DEXTROSE 5% 150 ML IVPB ×2 (01:08→13:35)
[2017-04-19] MEDS: PANTOPRAZOLE 40 MG INJ IV (06:17)
[2017-04-19] MEDS: MAGNESIUM OXIDE 400 MG TAB GTB (09:00)
[2017-04-19] MEDS: LACTOBACILLUS RHAMNOSUS CAP PO (09:00)
[2017-04-19] MEDS: CYANOCOBALAMIN 500 MCG TAB PO (09:00)
[2017-04-19] MEDS: ZINC SULFATE 220 MG CAP PO (09:00)
[2017-04-19] MEDS: LORATADINE 10 MG TAB PO (09:00)
[2017-04-19] MEDS: FOLIC ACID 1 MG TAB PO (09:00)
[2017-04-19] MEDS: LISINOPRIL 20 MG TAB PO (10:20)
[2017-04-19] MEDS: ENOXAPARIN 40 MG/0.4 ML SYG SC (10:24)
[2017-04-19] MEDS: ONDANSETRON 4 MG INJ IV (10:25)
[2017-04-19] MEDS: MAGNESIUM HYDROXIDE 30ML CUP PO (10:29)
[2017-04-19] MEDS: DIGOXIN 0.125 MG TAB PO (13:37)
[2017-04-19 13:57] LABS: ANION GAP 12 (8-16); BLOOD UREA NITROGEN 5 mg/dl (7-20); CARBON DIOXIDE 31 mmol/L (21-31); CHLORIDE 102 mmol/L (97-110); CREATININE 0.71 mg/dl (0.44-1.00); GLUCOSE 116 mg/dl (70-220); POTASSIUM 3.9 mmol/L (3.5-5.1); SODIUM 141 mmol/L (135-144)
[2017-04-19] MEDS: ERTAPENEM SODIUM 1 GM in SOD CHLORIDE 0.9% 100 ML IVPB (16:20)
== END 2017-04-19 18:25 | disposition home health service (06) | DRG 862 ==
LOC: MS1 04-11 21:12 → E/R 23:52 → MS1 03-20 04:44
PROC: 0W9G30Z Drainage of Peritoneal Cavity with Drainage Device, Percutaneous Approach (ICD-10-PCS; principal; 2017-03-25)
PROC: 02HV33Z Insertion of Infusion Device into Superior Vena Cava, Percutaneous Approach (ICD-10-PCS; 2017-03-27)
PROC: 0W9G30Z Drainage of Peritoneal Cavity with Drainage Device, Percutaneous Approach (ICD-10-PCS; 2017-03-30)
PROC: 0W2GX0Z Change Drainage Device in Peritoneal Cavity, External Approach (ICD-10-PCS; 2017-04-09)
DX: T81.4XXA Infection following a procedure, initial encounter (principal); K65.1 Peritoneal abscess; E43 Unspecified severe protein-calorie malnutrition; K85.90 Acute pancreatitis without necrosis or infection, unspecified; I50.42 Chronic combined systolic (congestive) and diastolic (congestive) heart failure; R65.10 Systemic inflammatory response syndrome (SIRS) of non-infectious origin without acute organ dysfunction; I48.0 Paroxysmal atrial fibrillation; Z68.27 Body mass index [BMI] 27.0-27.9, adult; Z93.3 Colostomy status; D50.9 Iron deficiency anemia, unspecified; Z87.891 Personal history of nicotine dependence; Z85.038 Personal history of other malignant neoplasm of large intestine; B96.20 Unspecified Escherichia coli [E. coli] as the cause of diseases classified elsewhere; B95.62 Methicillin resistant Staphylococcus aureus infection as the cause of diseases classified elsewhere; B96.89 Other specified bacterial agents as the cause of diseases classified elsewhere; R11.0 Nausea; R68.81 Early satiety; F41.8 Other specified anxiety disorders; K62.89 Other specified diseases of anus and rectum; G43.009 Migraine without aura, not intractable, without status migrainosus; R42 Dizziness and giddiness
CPT/HCPCS: 36415; 36569; 71010; 74176; 74177; 74240; 75984; 76700; 76937; 77012; 80048; 80053; 80202; 81003; 82150; 82607; 82746; 83540; 83690; 83735; 84100; 84134; 85025; 85610; 85730; 87070; 87075; 96374; 96375; 96376; 97110; 97116; 97162; 97530; 99285-25

== ENCOUNTER 2017-08-22 22:34 | Inpatient (IN) | payer OTHER ==
[2017-08-22] MEDS: ACETAMINOPHEN 650 MG SUPP PR (23:30)
[2017-08-22] MEDS: morphine 2 MG INJ IV (23:57)
[2017-08-22] MEDS: ONDANSETRON 4 MG INJ IV (23:57)
[2017-08-22] MEDS: SOD CHLORIDE 0.9% IV (23:59)
[2017-08-23 00:10] LABS: ADD MAN DIFF? NO
[2017-08-23 00:16] LABS: BASOPHILS % 0.2 % (0.0-2.0); HEMATOCRIT 33.3 % (37.0-47.0); HEMOGLOBIN 11.2 g/dl (12.0-16.0); LYMPHOCYTES % 6.9 % (15.0-51.0); MEAN CORPUSCULAR HEMOGLOBIN 30.9 pg (29.0-33.0); MEAN CORPUSCULAR HGB CONC 33.6 g/dl (32.0-37.0); MEAN CORPUSCULAR VOLUME 91.7 fl (82.0-101.0); MEAN PLATELET VOLUME 10.7 fl (7.4-10.4); MONOCYTE # 1.2 10^3/ul (0.3-0.9); MONOCYTES % 7.9 % (0.0-11.0); NEUTROPHIL # 12.4 10^3/ul (1.6-7.5); NEUTROPHILS % 84.5 % (39.0-77.0); PLATELET COUNT 223 10^3/UL (140-415); RED BLOOD COUNT 3.63 10^6/ul (4.20-5.40); RED CELL DISTRIBUTION WIDTH 12.7 % (11.5-14.5)
[2017-08-23 00:16] LABS: WHITE BLOOD COUNT 14.7 10^3/ul (4.8-10.8)
[2017-08-23 00:44] LABS: URINE PH (Dip) POC 5.5 (5.0-8.5)
[2017-08-23 00:44] LABS: URINE BLOOD (Dip) POC Negative (NEGATIVE); URINE GLUCOSE (Dip) POC Negative (NEGATIVE); URINE KETONES (Dip) POC Trace (NEGATIVE); URINE LEUKOCYTE EST (Dip) POC Negative (NEGATIVE); URINE NITRITE (Dip) POC Negative (NEGATIVE); URINE TOTAL PROTEIN POC 1+ (NEGATIVE)
[2017-08-23 00:51] LABS: INR 1.11; PROTIME 14.5 Sec (11.9-14.9); PT RATIO 1.1
[2017-08-23 00:52] LABS: PARTIAL THROMBOPLASTIN TIME 33.7 Sec (25.0-35.0)
[2017-08-23 01:00] LABS: DIGOXIN < 0.4 ng/ml (1.0-2.0)
[2017-08-23 01:10] LABS: ADD UMIC NO; UR ASCORBIC ACID NEGATIVE (NEGATIVE); UR BILIRUBIN (Dip) NEGATIVE (NEGATIVE); UR BLOOD (Dip) NEGATIVE (NEGATIVE); UR CLARITY CLEAR (CLEAR); UR COLOR YELLOW (YELLOW); UR GLUCOSE (Dip) NEGATIVE (NEGATIVE); UR KETONES (Dip) TRACE mg/dL (NEGATIVE); UR LEUKOCYTE ESTERASE (Dip) NEGATIVE Leu/ul (NEGATIVE); UR NITRITE (Dip) NEGATIVE (NEGATIVE); UR SPECIFIC GRAVITY (Dip) 1.026 (1.003-1.030); UR TOTAL PROTEIN (Dip) NEGATIVE (NEGATIVE); UR UROBILINOGEN (Dip) NEGATIVE (NEGATIVE)
[2017-08-23 01:19] LABS: ALANINE AMINOTRANSFERASE 14 IU/L (13-69); ALBUMIN 3.9 g/dl (3.3-4.9); ALBUMIN/GLOBULIN RATIO 1.21; ALKALINE PHOSPHATASE 59 IU/L (42-121); ANION GAP 13 (8-16); ASPARTATE AMINO TRANSFERASE 11 IU/L (15-46); BILIRUBIN,INDIRECT 2.7 mg/dl (0-1.1); BILIRUBIN,TOTAL 2.7 mg/dl (0.2-1.3); BLOOD UREA NITROGEN 31 mg/dl (7-20); CALCIUM 9.5 mg/dl (8.4-10.2); CARBON DIOXIDE 27 mmol/L (21-31); CHLORIDE 104 mmol/L (97-110); CREATININE 1.14 mg/dl (0.44-1.00); GLUCOSE 129 mg/dl (70-220); POTASSIUM 4.4 mmol/L (3.5-5.1); SODIUM 140 mmol/L (135-144); TOTAL PROTEIN 7.1 g/dl (6.1-8.1)
[2017-08-23 01:20] LABS: LACTIC ACID 0.7 mmol/L (0.5-2.0)
[2017-08-23 01:33] LABS: TROPONIN-I < 0.012 ng/ml (0.000-0.120)
[2017-08-23] MEDS: SOD CHLORIDE 0.9% 100 ML (01:42)
[2017-08-23] MEDS: IOHEXOL 300MG/ML 150 ML BTL ×3 (01:42→01:43)
[2017-08-23] MEDS: CIPROFLOXACIN 400MG/D5W 200 ML IVPB (02:07)
[2017-08-23] MEDS: metroNIDAZOLE 500 MG/NS (PMX) 100 ML IVPB (03:59)
[2017-08-23] MEDS: KETOROLAC 15 MG INJ IV (04:08)
[2017-08-23] MEDS: SOD CHLORIDE 0.9% 1,000 ML IV ×3 (04:08→05:32)
[2017-08-23 04:48] LABS: LACTIC ACID 1.1 mmol/L (0.5-2.0)
[2017-08-23] MEDS ORDERED: NACL 0.9% 3 ML SYG IV (05:30)
[2017-08-23] MEDS: VANCOMYCIN 1 GM (PMX) 250 ML IVPB (05:33)
[2017-08-23] MEDS ORDERED: VANCOMYCIN IV PER PHARMACY XX (06:30)
[2017-08-23 06:38] LABS: LACTIC ACID 0.8 mmol/L (0.5-2.0)
[2017-08-23] MEDS: FAMOTIDINE 20 MG INJ IV ×2 (09:00→22:47)
[2017-08-23] MEDS: LACTATED RINGER'S 1,000 ML IV ×2 (10:37→23:41)
[2017-08-23] MEDS: MEROPENEM 1 GM/50ML(PMX) 50 ML IVPB ×2 (14:04→23:42)
[2017-08-23] MEDS: DIGOXIN 500 MCG INJ IV (14:06)
[2017-08-23] MEDS: ONDANSETRON 4 MG INJ IV ×2 (14:11→18:03)
[2017-08-23] MEDS: morphine 2 MG INJ IV ×3 (14:12→22:47)
[2017-08-23] MEDS ORDERED: VANCOMYCIN 1 GM 250 ML IVPB (15:00)
[2017-08-23] MEDS ORDERED: VANCOMYCIN 750 MG in DEXTROSE 5% 150 ML IVPB ×2 (17:00→18:00)
[2017-08-24] MEDS: ONDANSETRON 4 MG INJ IV ×2 (02:54→22:44)
[2017-08-24] MEDS: morphine 2 MG INJ IV ×5 (02:55→22:45)
[2017-08-24] MEDS: LACTATED RINGER'S 1,000 ML IV ×2 (06:00→16:55)
[2017-08-24] MEDS ORDERED: DIPHENHYDRAMINE 50 MG INJ IM (06:00)
[2017-08-24] MEDS: IBUPROFEN 600 MG TAB PO (06:30)
[2017-08-24] MEDS: MEROPENEM 1 GM/50ML(PMX) 50 ML IVPB ×3 (06:50→21:36)
[2017-08-24] MEDS ORDERED: DIPHENHYDRAMINE 25 MG CAP PO (07:00)
[2017-08-24 07:37] LABS: WHITE BLOOD COUNT 8.4 10^3/ul (4.8-10.8)
[2017-08-24 07:37] LABS: HEMOGLOBIN 8.7 g/dl (12.0-16.0); MEAN CORPUSCULAR HEMOGLOBIN 31.1 pg (29.0-33.0); MEAN CORPUSCULAR HGB CONC 33.5 g/dl (32.0-37.0); MEAN CORPUSCULAR VOLUME 92.9 fl (82.0-101.0); MEAN PLATELET VOLUME 10.7 fl (7.4-10.4); PLATELET COUNT 164 10^3/UL (140-415); RED CELL DISTRIBUTION WIDTH 12.5 % (11.5-14.5)
[2017-08-24 08:02] LABS: ADD MAN DIFF? YES
[2017-08-24 08:11] LABS: ANION GAP 12 (8-16); BLOOD UREA NITROGEN 14 mg/dl (7-20); CALCIUM 8.5 mg/dl (8.4-10.2); CARBON DIOXIDE 26 mmol/L (21-31); CHLORIDE 106 mmol/L (97-110); CREATININE 0.87 mg/dl (0.44-1.00); GLUCOSE 82 mg/dl (70-220); POTASSIUM 4.2 mmol/L (3.5-5.1); SODIUM 140 mmol/L (135-144)
[2017-08-24] MEDS: FAMOTIDINE 20 MG INJ IV ×2 (08:23→20:36)
[2017-08-24] MEDS ORDERED: VANCOMYCIN IV PER PHARMACY XX (08:30)
[2017-08-24] MEDS: VANCOMYCIN 1 GM 250 ML IVPB (11:01)
[2017-08-24] MEDS: DIGOXIN 500 MCG INJ IV (13:41)
[2017-08-24] MEDS: VANCOMYCIN 750 MG in DEXTROSE 5% 150 ML IVPB (22:47)
[2017-08-25] MEDS: LACTATED RINGER'S 1,000 ML IV ×2 (02:00→12:00)
[2017-08-25] MEDS: morphine 2 MG INJ IV ×3 (03:04→12:16)
[2017-08-25] MEDS: ONDANSETRON 4 MG INJ IV ×4 (03:04→21:32)
[2017-08-25] MEDS: MEROPENEM 1 GM/50ML(PMX) 50 ML IVPB ×3 (06:57→21:32)
[2017-08-25 07:38] LABS: ADD MAN DIFF? NO
[2017-08-25 07:43] LABS: WHITE BLOOD COUNT 7.9 10^3/ul (4.8-10.8)
[2017-08-25 07:43] LABS: BASOPHILS % 0.4 % (0.0-2.0); EOSINOPHILS # 0.1 10^3/ul (0.0-0.5); EOSINOPHILS % 1.4 % (0.0-7.0); HEMATOCRIT 27.8 % (37.0-47.0); HEMOGLOBIN 9.3 g/dl (12.0-16.0); LYMPHOCYTES # 1.2 10^3/ul (0.8-2.9); LYMPHOCYTES % 15.6 % (15.0-51.0); MEAN CORPUSCULAR HEMOGLOBIN 30.1 pg (29.0-33.0); MEAN CORPUSCULAR HGB CONC 33.5 g/dl (32.0-37.0); MEAN PLATELET VOLUME 10.4 fl (7.4-10.4); MONOCYTE # 0.6 10^3/ul (0.3-0.9); MONOCYTES % 7.4 % (0.0-11.0); NEUTROPHIL # 5.9 10^3/ul (1.6-7.5); NEUTROPHILS % 74.9 % (39.0-77.0); PLATELET COUNT 204 10^3/UL (140-415); RED BLOOD COUNT 3.09 10^6/ul (4.20-5.40); RED CELL DISTRIBUTION WIDTH 12.4 % (11.5-14.5)
[2017-08-25 08:08] LABS: ANION GAP 9 (8-16); BLOOD UREA NITROGEN 10 mg/dl (7-20); CARBON DIOXIDE 29 mmol/L (21-31); CHLORIDE 106 mmol/L (97-110); GLUCOSE 100 mg/dl (70-220); POTASSIUM 3.8 mmol/L (3.5-5.1); SODIUM 140 mmol/L (135-144)
[2017-08-25] MEDS: FAMOTIDINE 20 MG INJ IV ×2 (09:25→21:32)
[2017-08-25] MEDS: VANCOMYCIN 750 MG in DEXTROSE 5% 150 ML IVPB ×2 (10:19→22:00)
[2017-08-25] MEDS: DIGOXIN 500 MCG INJ IV (12:36)
[2017-08-25] MEDS ORDERED: DOCUSATE SODIUM 100 MG CAP PO (13:30)
[2017-08-25] MEDS: morphine LIQ (10 MG/5 ML) CUP PO ×2 (16:37→21:34)
[2017-08-25] MEDS: ACETAMINOPHEN 325 MG TAB PO (16:37)
[2017-08-25] MEDS: RIVAROXABAN 20 MG TABLET PO (17:43)
[2017-08-25] MEDS: LACTOBACILLUS RHAMNOSUS CAP PO (21:32)
[2017-08-26] MEDS: morphine LIQ (10 MG/5 ML) CUP PO ×3 (03:14→20:09)
[2017-08-26] MEDS: ONDANSETRON 4 MG INJ IV ×2 (03:15→20:09)
[2017-08-26] MEDS: MEROPENEM 1 GM/50ML(PMX) 50 ML IVPB ×3 (06:34→21:52)
[2017-08-26 06:53] LABS: ADD MAN DIFF? NO
[2017-08-26 06:59] LABS: BASOPHILS % 0.4 % (0.0-2.0); EOSINOPHILS # 0.1 10^3/ul (0.0-0.5); EOSINOPHILS % 2.8 % (0.0-7.0); HEMATOCRIT 25.6 % (37.0-47.0); HEMOGLOBIN 8.9 g/dl (12.0-16.0); LYMPHOCYTES # 1.1 10^3/ul (0.8-2.9); LYMPHOCYTES % 21.8 % (15.0-51.0); MEAN CORPUSCULAR HEMOGLOBIN 31.1 pg (29.0-33.0); MEAN CORPUSCULAR HGB CONC 34.8 g/dl (32.0-37.0); MEAN CORPUSCULAR VOLUME 89.5 fl (82.0-101.0); MEAN PLATELET VOLUME 10.4 fl (7.4-10.4); MONOCYTE # 0.4 10^3/ul (0.3-0.9); MONOCYTES % 8.3 % (0.0-11.0); NEUTROPHIL # 3.3 10^3/ul (1.6-7.5); NEUTROPHILS % 66.3 % (39.0-77.0); PLATELET COUNT 207 10^3/UL (140-415); RED BLOOD COUNT 2.86 10^6/ul (4.20-5.40); RED CELL DISTRIBUTION WIDTH 12.3 % (11.5-14.5)
[2017-08-26 07:20] LABS: MAGNESIUM 1.9 mg/dl (1.7-2.5)
[2017-08-26 07:23] LABS: ANION GAP 11 (8-16); BLOOD UREA NITROGEN 12 mg/dl (7-20); CALCIUM 8.4 mg/dl (8.4-10.2); CARBON DIOXIDE 30 mmol/L (21-31); CHLORIDE 104 mmol/L (97-110); CREATININE 0.77 mg/dl (0.44-1.00); GLUCOSE 90 mg/dl (70-220); POTASSIUM 3.5 mmol/L (3.5-5.1); SODIUM 141 mmol/L (135-144)
[2017-08-26] MEDS: FAMOTIDINE 20 MG INJ IV ×2 (08:46→20:32)
[2017-08-26] MEDS: LACTOBACILLUS RHAMNOSUS CAP PO ×2 (08:47→20:32)
[2017-08-26] MEDS: FOLIC ACID 1 MG TAB PO (08:47)
[2017-08-26] MEDS: CYANOCOBALAMIN 500 MCG TAB PO (08:48)
[2017-08-26] MEDS: VANCOMYCIN 750 MG in DEXTROSE 5% 150 ML IVPB ×2 (10:10→23:16)
[2017-08-26] MEDS: DIGOXIN 500 MCG INJ IV (12:38)
[2017-08-26] MEDS: RIVAROXABAN 20 MG TABLET PO (17:38)
[2017-08-27] MEDS: morphine LIQ (10 MG/5 ML) CUP PO ×4 (00:27→20:49)
[2017-08-27] MEDS: MEROPENEM 1 GM/50ML(PMX) 50 ML IVPB ×3 (05:28→23:00)
[2017-08-27] MEDS ORDERED: ONDANSETRON 4 MG INJ IV (07:00)
[2017-08-27] MEDS: FOLIC ACID 1 MG TAB PO (08:05)
[2017-08-27] MEDS: FAMOTIDINE 20 MG INJ IV ×2 (08:05→20:12)
[2017-08-27] MEDS: CYANOCOBALAMIN 500 MCG TAB PO (08:05)
[2017-08-27] MEDS: LACTOBACILLUS RHAMNOSUS CAP PO ×2 (08:05→20:12)
[2017-08-27] MEDS: VANCOMYCIN 750 MG in DEXTROSE 5% 150 ML IVPB ×2 (09:45→23:40)
[2017-08-27] MEDS: DIGOXIN 500 MCG INJ IV ×2 (13:27→16:38)
[2017-08-27] MEDS: LIDOCAINE 1% (MPF) 5 ML VIAL SC (20:10)
[2017-08-28] MEDS: morphine LIQ (10 MG/5 ML) CUP PO ×5 (00:57→20:31)
[2017-08-28] MEDS: MEROPENEM 1 GM/50ML(PMX) 50 ML IVPB ×3 (05:05→22:29)
[2017-08-28 05:50] LABS: ADD MAN DIFF? NO
[2017-08-28 05:54] LABS: BASOPHILS % 0.3 % (0.0-2.0); EOSINOPHILS # 0.2 10^3/ul (0.0-0.5); HEMATOCRIT 26.9 % (37.0-47.0); HEMOGLOBIN 9.3 g/dl (12.0-16.0); LYMPHOCYTES # 1.6 10^3/ul (0.8-2.9); LYMPHOCYTES % 26.9 % (15.0-51.0); MEAN CORPUSCULAR HEMOGLOBIN 31.3 pg (29.0-33.0); MEAN CORPUSCULAR HGB CONC 34.6 g/dl (32.0-37.0); MEAN CORPUSCULAR VOLUME 90.6 fl (82.0-101.0); MEAN PLATELET VOLUME 9.9 fl (7.4-10.4); MONOCYTE # 0.6 10^3/ul (0.3-0.9); MONOCYTES % 9.3 % (0.0-11.0); NEUTROPHIL # 3.6 10^3/ul (1.6-7.5); NEUTROPHILS % 60.2 % (39.0-77.0); PLATELET COUNT 253 10^3/UL (140-415); RED BLOOD COUNT 2.97 10^6/ul (4.20-5.40); RED CELL DISTRIBUTION WIDTH 12.2 % (11.5-14.5)
[2017-08-28 06:09] LABS: PHOSPHORUS 3.6 mg/dl (2.5-4.9)
[2017-08-28 06:09] LABS: MAGNESIUM 1.9 mg/dl (1.7-2.5)
[2017-08-28 06:13] LABS: ANION GAP 13 (8-16); BLOOD UREA NITROGEN 15 mg/dl (7-20); CALCIUM 8.6 mg/dl (8.4-10.2); CARBON DIOXIDE 30 mmol/L (21-31); CHLORIDE 103 mmol/L (97-110); CREATININE 0.76 mg/dl (0.44-1.00); GLUCOSE 86 mg/dl (70-220); POTASSIUM 3.6 mmol/L (3.5-5.1); SODIUM 142 mmol/L (135-144)
[2017-08-28] MEDS: FOLIC ACID 1 MG TAB PO (08:30)
[2017-08-28] MEDS: LACTOBACILLUS RHAMNOSUS CAP PO ×2 (08:30→20:30)
[2017-08-28] MEDS: CYANOCOBALAMIN 500 MCG TAB PO (08:31)
[2017-08-28] MEDS: FAMOTIDINE 20 MG INJ IV ×2 (08:31→20:30)
[2017-08-28] MEDS: ENOXAPARIN 40 MG/0.4 ML SYG SC (08:35)
[2017-08-28] MEDS: VANCOMYCIN 750 MG in DEXTROSE 5% 150 ML IVPB ×2 (10:20→23:05)
[2017-08-28] MEDS: DIGOXIN 500 MCG INJ IV (13:00)
[2017-08-28] MEDS: DIGOXIN 0.125 MG TAB PO (14:53)
[2017-08-29] MEDS: morphine LIQ (10 MG/5 ML) CUP PO ×6 (00:35→21:27)
[2017-08-29] MEDS: MEROPENEM 1 GM/50ML(PMX) 50 ML IVPB ×3 (05:10→21:27)
[2017-08-29] MEDS: LACTOBACILLUS RHAMNOSUS CAP PO ×2 (09:06→20:53)
[2017-08-29] MEDS: FAMOTIDINE 20 MG INJ IV ×2 (09:06→20:53)
[2017-08-29] MEDS: FOLIC ACID 1 MG TAB PO (09:06)
[2017-08-29] MEDS: CYANOCOBALAMIN 500 MCG TAB PO (09:06)
[2017-08-29] MEDS: ENOXAPARIN 40 MG/0.4 ML SYG SC (09:19)
[2017-08-29] MEDS: VANCOMYCIN 750 MG in DEXTROSE 5% 150 ML IVPB ×3 (10:00→22:18)
[2017-08-29 10:11] LABS: VANCOMYCIN,TROUGH 13.1 ug/ml (10.0-20.0)
[2017-08-29] MEDS: DIGOXIN 0.125 MG TAB PO (13:13)
[2017-08-30] MEDS: morphine LIQ (10 MG/5 ML) CUP PO ×4 (01:27→14:21)
[2017-08-30] MEDS: MEROPENEM 1 GM/50ML(PMX) 50 ML IVPB (05:37)
[2017-08-30] MEDS: ONDANSETRON 4 MG TAB PO (09:24)
[2017-08-30] MEDS: CYANOCOBALAMIN 500 MCG TAB PO (09:25)
[2017-08-30] MEDS: FOLIC ACID 1 MG TAB PO (09:25)
[2017-08-30] MEDS: LACTOBACILLUS RHAMNOSUS CAP PO (09:25)
[2017-08-30] MEDS: FAMOTIDINE 20 MG INJ IV (09:25)
[2017-08-30] MEDS: ENOXAPARIN 40 MG/0.4 ML SYG SC (09:28)
[2017-08-30] MEDS: VANCOMYCIN 750 MG in DEXTROSE 5% 150 ML IVPB (09:33)
[2017-08-30] MEDS: ERTAPENEM SODIUM 1 GM in SOD CHLORIDE 0.9% 100 ML IVPB (12:36)
[2017-08-30] MEDS: DIGOXIN 0.125 MG TAB PO (14:20)
== END 2017-08-30 15:35 | disposition home health service (06) | DRG 393 ==
LOC: E/R 22:34 → MS2 08-27 18:39 → TEL 08-23 05:18
DX: K94.09 Other complications of colostomy (principal); A41.9 Sepsis, unspecified organism; K65.1 Peritoneal abscess; R65.20 Severe sepsis without septic shock; I50.42 Chronic combined systolic (congestive) and diastolic (congestive) heart failure; I10 Essential (primary) hypertension; I48.0 Paroxysmal atrial fibrillation; Y83.2 Surgical operation with anastomosis, bypass or graft as the cause of abnormal reaction of the patient, or of later complication, without mention of misadventure at the time of the procedure; Y92.019 Unspecified place in single-family (private) house as the place of occurrence of the external cause; Z85.038 Personal history of other malignant neoplasm of large intestine; Z79.02 Long term (current) use of antithrombotics/antiplatelets; Z87.891 Personal history of nicotine dependence
CPT/HCPCS: 36415; 36569; 71045; 74177; 76937; 80048; 80053; 80162; 80202; 81003; 81025; 83605; 83735; 84100; 84484; 84703; 85025; 85610; 85730; 87040; 87086; 87210; 93005; 96365; 96366; 96375; 96376; 99291-25